=== PATIENT | male | born 1960 | race Caucasian/White ===

== ENCOUNTER → 2023-04-17 10:22 | Outpatient (BNVA) | payer OTHER, SELFPAY | PROVIDERS: Family Provider Internal Medicine; PCP Family Medicine; Visit Provider Family Medicine | DX: E11.9 Type 2 diabetes mellitus without complications (principal); E78.5 Hyperlipidemia, unspecified; I10 Essential (primary) hypertension; Z76.89 Persons encountering health services in other specified circumstances; Z00.00 Encounter for general adult medical examination without abnormal findings | CPT/HCPCS: 80053; 80061; 82043; 82607; 83036 ==

== ENCOUNTER → 2023-06-10 15:52 | Outpatient (BNVA) | payer OTHER, SELFPAY | PROVIDERS: Family Provider Internal Medicine; PCP Family Medicine; Visit Provider Family Medicine | DX: R60.9 Edema, unspecified (principal); R18.8 Other ascites; I10 Essential (primary) hypertension | CPT/HCPCS: 80053; 83880; 85025 ==

== ENCOUNTER → 2023-06-12 09:01 | Outpatient (BNVA) | payer OTHER, SELFPAY | PROVIDERS: Family Provider Internal Medicine; PCP Family Medicine; Visit Provider Family Medicine | DX: R74.01 Elevation of levels of liver transaminase levels (principal); R18.8 Other ascites; R60.9 Edema, unspecified | CPT/HCPCS: 80074; 82728; 83540; 84466; 85610; 86706 ==

== ENCOUNTER 2023-06-24 14:00 | Outpatient (CLI) | payer OTHER, SELFPAY ==
--- NOTE | 2023-06-24 14:30 | USCV_ITS ---
Marcos Deluca Age: 63 Gender: M : 1960 Exam Date: 06/24/2023 14:39 Ordering Phys: Cynthia Ca MD Technologist: CT [place] [facility] [place]: edema BP: 144 / 94 HR: 98 Rhythm: Sinus Technical Quality: Adequate MEASUREMENTS (Male / Female) Normal Values 2D ECHO LVOT Diameter 2.1 cm LV Ejection Fraction MOD 2C 55.1 % LV Ejection Fraction 2C AL 55.8 % LA Diameter 4.0 cm Aorta at Sinotubular Diameter 2.4 cm M-MODE Aortic Annulus Diameter 3.3 cm LA Ao Ratio MM 1.2 MV E Point Septal Separation 1.4 cm DOPPLER AV Peak Velocity 151.0 cm/s LVOT Peak Velocity 99.0 cm/s AV Area Cont Eq vti 2.8 cm squared AV Area Cont Eq pk 2.3 cm squared MV E' Velocity 9.0 cm/s TR Peak Velocity 114.0 cm/s TR Peak Gradient 5.2 mmHg TV Peak E Velocity 80.0 cm/s Right Atrial Pressure 3.0 mmHg Pulmonary Artery Systolic Pressu 8.2 mmHg PV Peak Velocity 129.0 cm/s FINDINGS Left Ventricle Normal left ventricular size and systolic function, EF 58 %. No regional wall motion abnormalities.Normal diastolic function. Grade I/IV diastolic dysfunction (abnormal relaxation filling pattern), normal to mildly elevated filling pressures. Right Ventricle The right ventricle is normal in size and function. Right Atrium The right atrium is normal in size. Left Atrium The left atrium is normal in size. Mitral Valve Thickened mitral valve. Mild mitral annular calcification. Aortic Valve Thickened aortic valve. Tricuspid Valve No gross abnormalities noted Pulmonic Valve No gross abnormalities noted Pericardium Possible left-sided pleural effusion Aorta Normal aortic annulus size. IVC Inferior vena cava not visualized. CONCLUSIONS Normal left ventricular size and systolic function, EF 58 %. No regional wall motion abnormalities.Normal diastolic function. Grade I/IV diastolic dysfunction (abnormal relaxation filling pattern), normal to mildly elevated filling pressures. Thickened mitral valve. Mild mitral annular calcification. Thickened aortic valve. Possible left-sided pleural effusion. No similar previous studies are available for comparison Dr Star Polk MD [facility] (Electronically Signed) Final Date: 25 June 2023 19:10 S
== END 2023-06-24 14:01 | disposition home or self-care (01) ==
LOC: RAD 14:02
PROVIDERS: Family Provider Internal Medicine; PCP Family Medicine; Visit Provider Family Medicine
DX: R60.9 Edema, unspecified (principal); I08.0 Rheumatic disorders of both mitral and aortic valves
CPT/HCPCS: 93306

== ENCOUNTER 2023-06-25 07:58 | Outpatient (CLI) | payer OTHER, SELFPAY ==
--- NOTE | 2023-06-25 08:30 | US_ITS ---
WS: [id number] ABDOMINAL ULTRASOUND REASON FOR EXAM: assess liver TECHNIQUE: Grayscale and Doppler ultrasound examination of the abdomen. FINDINGS: Pancreas: No mass or ductal dilatation. Abdominal aorta and IVC: Normal caliber and blood flow. Liver: Liver measures 20.3 cm in length. Contour of the liver is somewhat lobular. Liver is echodense . No focal lesion. Gallbladder surgically absent. Common bile duct measures 5 mm. Normal portal venous blood flow. Left kidney: Left kidney measures 12.0 cm x 5.1 cm x 5.5 cm. Left kidney cortex measures 1.2 cm. No h ydronephrosis, mass, or calculus. Right kidney: Right kidney measures 11.9 cm x 6.3 cm x 5.1 cm. Right kidney cortex measures 1.3 cm. N o hydronephrosis, mass, or calculus. Spleen: Spleen measures 17.1 cm x 8.1 cm x 17.0 cm. No focal lesion. Significant ascites. IMPRESSION: Significant hepatosplenomegaly. Significant ascites.
== END 2023-06-25 07:59 | disposition home or self-care (01) ==
LOC: RAD 07:59
PROVIDERS: Family Provider Internal Medicine; PCP Family Medicine; Visit Provider Family Medicine
DX: R18.8 Other ascites (principal); R16.2 Hepatomegaly with splenomegaly, not elsewhere classified
CPT/HCPCS: 76700

== ENCOUNTER → 2023-07-16 13:31 | Outpatient (BNVA) | payer OTHER, SELFPAY | PROVIDERS: Family Provider Internal Medicine; PCP Family Medicine; Visit Provider Family Medicine | DX: R74.01 Elevation of levels of liver transaminase levels (principal) | CPT/HCPCS: 80053; 85025 ==

== ENCOUNTER → 2023-08-14 12:56 | Outpatient (BNVA) | payer OTHER, SELFPAY | PROVIDERS: Family Provider Internal Medicine; PCP Family Medicine; Visit Provider Family Medicine | DX: R18.8 Other ascites (principal) | CPT/HCPCS: 80053; 85025; 85610 ==

== ENCOUNTER 2023-08-18 16:50 | Outpatient (CLI) | payer OTHER, SELFPAY ==
--- NOTE | 2023-08-18 16:45 | CTR_ITS ---
PROCEDURE INFORMATION: Exam: CT Abdomen And Pelvis Without Contrast Exam date and time: 08/18/2023 4:59 PM Age: 63 years old Clinical indication: Abdominal pain; Localized; Right upper quadrant (ruq); Prior surgery; Surgery date: 6+ months; Surgery type: Gb; Patient HX: Enlarged liver, burning pain in ruq since yesterday, bloating. ; Additional info: Acute ruq pain, worsening abdominal ascites, hepatomegaly, call Dr. Ca's cell w/ urgent findings - [phone] TECHNIQUE: Imaging protocol: Computed tomography of the abdomen and pelvis without contrast. Sagittal and coronal reformatted images were created and reviewed. Radiation optimization: All CT scans at this facility use at least one of these dose optimization techniques: automated exposure control; mA and/or kV adjustment per patient size (includes targeted exams where dose is matched to clinical indication); or iterative reconstruction. COMPARISON: US abdomen complete* [id number] 06/25/2023 8:12 AM RADIATION DOSE METRICS: Total DLP (mGy-cm): 854.61 FINDINGS: Limitations: Evaluation of solid organs and vasculature is limited without intravenous contrast. Lungs: There is linear scarring in the right and left lower lobes. Pleural spaces: No pleural effusion. Heart: The heart is normal in size. Coronary arteries: Mild atherosclerotic calcification in the coronary arteries. Liver: Stable nodular contour of the liver. Gallbladder and bile ducts: Stable findings consistent with a previous cholecystectomy. No biliary ductal dilatation. Pancreas: The pancreas is unremarkable. No pancreatic ductal dilatation. Spleen: Stable mild enlargement of the spleen measuring 16.4 cm in length (series 5, image 52). Adrenal glands: The right and left adrenal glands are unremarkable. Kidneys and ureters: The right and left kidneys are unremarkable. The distal right and left ureters are obscured by adjacent bowel loops and soft tissue structures. The visualized portions of the ureters are unremarkable. Stomach and bowel: The stomach is unremarkable for the degree of distension. Diffuse, mild small bowel wall thickening, likely secondary to edema from ascites. Increased fecal content in the colon. Appendix: Appendix not definitely visualized. No inflammatory changes in the pericecal region however. Intraperitoneal space: No free intraperitoneal air. Stable large volume ascites/diffuse mesenteric edema. No loculated fluid collections to suggest an abscess. Vasculature: Mild atherosclerotic changes in the visualized arteries. No evidence for aortic aneurysm. Small caliber varices in the upper abdomen. Lymph nodes: No lymphadenopathy. Urinary bladder: The bladder is unremarkable. Reproductive: Calcifications in the vas deferens. The prostate gland is mildly enlarged. Bones/joints: Degenerative changes in the spine, sacroiliac joints, and hips. Calcification of the anterior longitudinal ligament at multiple levels in the visualized thoracic spine, possibly representing diffuse idiopathic skeletal hyperostosis (DISH). Bilateral pars defects at L5-S1. Soft tissues: Moderate body wall edema. CT/CT abdomen pelvis wo con [id number] IMPRESSION: 1. Cirrhotic changes in the liver and findings suggesting portal hypertension with large volume ascites/mesenteric edema and small caliber varices in the upper abdomen. 2. Diffuse, mild small bowel wall thickening, likely secondary to edema from ascites. 3. Increased fecal content in the colon. 4. Moderate body wall edema. 5. Calcifications in the vas deferens. Findings raise suspicion for diabetes mellitus. Recommend clinical correlation. 6. Incidental/nonacute findings are listed in the report.
== END 2023-08-18 16:51 | disposition home or self-care (01) ==
LOC: RAD 16:50
PROVIDERS: Family Provider Internal Medicine; PCP Family Medicine; Visit Provider Family Medicine
DX: R18.8 Other ascites (principal); R16.0 Hepatomegaly, not elsewhere classified; R93.3 Abnormal findings on diagnostic imaging of other parts of digestive tract; R93.2 Abnormal findings on diagnostic imaging of liver and biliary tract; R10.11 Right upper quadrant pain
CPT/HCPCS: 74176

== ENCOUNTER 2023-08-21 11:27 | Day surgery (SDC) | payer OTHER, SELFPAY ==
[2023-08-21 11:38] VITALS: BP 146/89; PULSE 102; RESP 18; TEMP 36.8; O2SAT 97; BMI 30.5
--- NOTE | 2023-08-21 11:49 | US_ITS ---
WS: [id number] ULTRASOUND-GUIDED PARACENTESIS CLINICAL INFORMATION: ascities in the setting of cirrhosis COMPARISON: None. Procedure Informed consent: The risks, benefits, and alternatives of the procedure were discussed with the panfilo ent. Verbal and written consent was obtained. Timeout: A timeout was performed to confirm the correct patient, procedure, and site. Preparation: A suitable skin site was identified. The patient was prepped and draped in usual sterile fashion. Lidocaine 1% was used for local anesthesia. Catheter: 4 Swedish One-step Yueh catheter. Side: LEFT lower quadrant. Fluid Volume: 6000 ml Color: Clear yellow DISPOSITION: Discarded safely. Complications: None. Patient disposition: Discharged from the department in stable condition. IMPRESSION: Uncomplicated ultrasound-guided paracentesis. Removal of 6000 cc
== END 2023-08-21 13:00 | disposition home or self-care (01) ==
PROVIDERS: Radiology Neuroradiology; Family Provider Internal Medicine; PCP Family Medicine; Visit Provider Family Medicine
PROC: (CPT 49082; principal; 2023-08-21 12:30)
DX: R18.8 Other ascites (principal); K74.60 Unspecified cirrhosis of liver
CPT/HCPCS: 49083

== ENCOUNTER → 2023-09-04 08:42 | Day surgery (SDC) | payer OTHER, SELFPAY ==
[2023-09-04 09:03] VITALS: BP 142/88; PULSE 97; RESP 18; TEMP 36.9; O2SAT 95
--- NOTE | 2023-09-04 09:17 | US_ITS ---
WS: [id number] ULTRASOUND-GUIDED THERAPEUTIC PARACENTESIS Procedure, risks, and complications have been explained to the patient. Consent is obtained. Utilizing aseptic technique and 1% buffered lidocaine, a small dermatome was made through which a 5 F rench Yueh catheter was inserted. Approximately 8400 ml of clear peritoneal fluid was obtained witho ut difficulty. No complications encountered. IMPRESSION: Uncomplicated paracentesis yielding 8400 ml of peritoneal fluid.
[2023-09-04 10:20] LABS: Cyto Order Verification Order Verified
[2023-09-04 10:21] LABS: Apprearance, Body Fluid CLOUDY; Color, Body Fluid PALE YELLOW; Fluid Laterality PERITONEAL FLUID; PATH Referral YES
[2023-09-04] MEDS: albumin 50 G/200 ML BAG 60 G IV (10:31)
[2023-09-04 10:33] LABS: Body Fluid Polynuclear #Cells 0.027; Body Fluid WBC 912 /uL; Monocytes # Body Fluid 0.885; RBC, Body Fluid 0 10^3/uL
[2023-09-04 10:39] LABS: Albumin Body Fluid 1.6 g/dL; Total Protein Body Fluid 2.7 g/dL
== END ==
PROVIDERS: Nurse Practitioner Family; Radiology Diagnostic Radiology; Family Provider Internal Medicine; PCP Family Medicine; Visit Provider Pathology Anatomic Pathology & Clinical Pathology
PROC: (CPT 49082; principal; 2023-09-04 10:00)
DX: R18.8 Other ascites (principal)
CPT/HCPCS: 49083; 80503; 82042; 84157; 87070; 87075; 87205; 88112; 89050; 96365; P9046

== ENCOUNTER 2023-09-16 10:46 | Day surgery (SDC) | payer OTHER, SELFPAY ==
--- NOTE | 2023-09-16 10:54 | US_ITS ---
WS: [id number] ULTRASOUND-GUIDED THERAPEUTIC AND DIAGNOSTIC PARACENTESIS Procedure, risks, and complications have been explained to the patient. Consent is obtained. Utilizing aseptic technique and 1% buffered lidocaine, a small dermatome was made through which a 5 F rench Yueh catheter was inserted. Approximately 5800 ml of clear peritoneal fluid was obtained witho ut difficulty. No complications encountered. IMPRESSION: Uncomplicated paracentesis yielding 5800 ml of peritoneal fluid. Specimen collected for analysis as requested.
[2023-09-16 11:02] VITALS: BP 125/71; PULSE 88; RESP 20; TEMP 36.2; O2SAT 97; BMI 28.7
[2023-09-16 12:15] LABS: Body Fluid Polynuclear #Cells 0.136; Body Fluid WBC 1518 /uL; Monocytes # Body Fluid 1.382
[2023-09-16 12:31] LABS: PATH Referral YES
[2023-09-16 12:37] LABS: Apprearance, Body Fluid CLOUDY; Color, Body Fluid PALE YELLOW; Cyto Order Verification Order Verified; Fluid Laterality Left Lower
[2023-09-16 12:44] LABS: Albumin Body Fluid 1.5 g/dL; Fluid Alkaline Phos. 76 IU/L; LDH Body Fluid 81 U/L; Total Protein Body Fluid 2.8 g/dL
[2023-09-16 12:45] LABS: Cholesterol Body Fluid 49 mg/dL (0-200); Triglycerides Body Fluid 16 mg/dL (0-150); Uric Acid Body Fluid 7 mg/dL
[2023-09-21 20:54] LABS: Amylase, Peritoneal Fluid 11 U/L; Amylase, Pleural Fluid 11 U/L
== END 2023-09-16 12:18 | disposition home or self-care (01) ==
PROVIDERS: Radiology Diagnostic Radiology; Family Provider Internal Medicine; PCP Family Medicine; Visit Provider Nurse Practitioner Family
PROC: (CPT 49082; principal; 2023-09-16 12:00)
DX: R18.8 Other ascites (principal)
CPT/HCPCS: 49083; 80503; 82042; 82150; 82465; 82945; 83615; 83986; 84075; 84157; 84315; 84478; 84560; 87015; 87070; 87075; 87116; 87205; 87206; 87801; 88112; 89050

== ENCOUNTER 2023-09-30 10:32 | Day surgery (SDC) | payer OTHER, SELFPAY ==
--- NOTE | 2023-09-30 11:24 | US_ITS ---
WS: [id number] ULTRASOUND-GUIDED THERAPEUTIC AND DIAGNOSTIC PARACENTESIS Procedure, risks, and complications have been explained to the patient. Consent is obtained. Utilizing aseptic technique and 1% buffered lidocaine, a small dermatome was made through which a 5 F rench Yueh catheter was inserted. Approximately 7900 ml of clear yellow peritoneal fluid was obtained without difficulty. No complications encountered. Fluid collected for analysis as requested. US/US paracentesis abd w [id number] IMPRESSION: Uncomplicated paracentesis yielding 7900 ml of peritoneal fluid.
[2023-09-30 11:46] VITALS: BP 144/77; PULSE 87; RESP 16; TEMP 36.5; O2SAT 97; BMI 29.4
[2023-09-30 12:21] LABS: Mononuclear %, Pleural Fluid 95 %; Polynuclear Cells, Pleural % 5 %
[2023-09-30 12:24] LABS: Cyto Order Verification Order Verified
[2023-09-30 12:26] LABS: Appearance, Pleural Fluid CLOUDY (CLEAR); Color, Pleural Fluid Yellow (Pale Yellow); PATH Referal YES
[2023-09-30] MEDS: albumin 50 G/200 ML BAG 60 G IV (12:37)
[2023-09-30 12:42] LABS: Albumin Body Fluid 1.5 g/dL; Total Protein Body Fluid 2.7 g/dL
== END 2023-09-30 13:08 | disposition home or self-care (01) ==
LOC: GILAB 10:33
PROVIDERS: Radiology Diagnostic Radiology; Family Provider Internal Medicine; PCP Family Medicine; Visit Provider Nurse Practitioner Family
PROC: (CPT 49082; principal; 2023-09-30 12:00)
DX: R18.8 Other ascites (principal)
CPT/HCPCS: 49083; 80503; 82042; 84157; 87075; 88112; 89050; 96365; P9046

== ENCOUNTER 2023-10-14 10:32 | Day surgery (SDC) | payer OTHER, SELFPAY ==
--- NOTE | 2023-10-14 10:56 | US_ITS ---
WS: [id number] ULTRASOUND-GUIDED THERAPEUTIC AND DIAGNOSTIC PARACENTESIS Procedure, risks, and complications have been explained to the patient. Consent is obtained. Utilizing aseptic technique and 1% buffered lidocaine, a small dermatome was made through which a 5 F rench Yueh catheter was inserted. Approximately 5500 ml of clear peritoneal fluid was obtained witho ut difficulty. No complications encountered. Specimen collected for analysis as requested. US/US paracentesis abd w [id number] IMPRESSION: Uncomplicated paracentesis yielding 5500 ml of peritoneal fluid.
[2023-10-14 10:58] VITALS: BP 129/68; PULSE 93; RESP 18; TEMP 36.2; O2SAT 96; BMI 29.4
[2023-10-14 12:02] LABS: Mononuclear #, Pertinoneal Fl 0.855 10^3/uL; Polynuclear # Cells, Perit 0.028 10^3/uL; RBC Pertioneal Fluid 1 10^3/uL; WBC Peritoneal Fluid 883 /uL
[2023-10-14 12:06] LABS: Cyto Order Verification Order Verified
[2023-10-14 12:14] LABS: Appearance, Peritoneal Fluid Hazy (Clear); Color, Peritoneal Fluid Yellow (Pale Yellow); Pathology Referral Yes
[2023-10-14 12:42] LABS: Albumin Peritoneal Fluid 1.6 g/dL
== END 2023-10-14 12:15 | disposition home or self-care (01) ==
LOC: GILAB 10:33
PROVIDERS: Radiology Diagnostic Radiology; Family Provider Internal Medicine; PCP Family Medicine; Visit Provider Nurse Practitioner Family
PROC: (CPT 49082; principal; 2023-10-14 12:00)
DX: R18.8 Other ascites (principal)
CPT/HCPCS: 49083; 80503; 82042; 84157; 87075; 88112; 89050

== ENCOUNTER 2023-10-28 10:42 | Day surgery (SDC) | payer OTHER, SELFPAY ==
--- NOTE | 2023-10-28 11:05 | US_ITS ---
WS: [id number] ULTRASOUND-GUIDED THERAPEUTIC AND DIAGNOSTIC PARACENTESIS Procedure, risks, and complications have been explained to the patient. Consent is obtained. Utilizing aseptic technique and 1% buffered lidocaine, a small dermatome was made through which a 5 F rench Yueh catheter was inserted. Approximately 4100 ml of clear peritoneal fluid was obtained witho ut difficulty. No complications encountered. Specimen collected for analysis. US/US paracentesis abd w [id number] IMPRESSION: Uncomplicated paracentesis yielding 4100 ml of peritoneal fluid.
[2023-10-28 11:11] VITALS: BP 131/77; PULSE 83; RESP 20; TEMP 36.1; O2SAT 96; BMI 29.5
[2023-10-28 12:54] LABS: Appearance, Pleural Fluid TURBID (CLEAR); Color, Pleural Fluid Pale Yellow (Pale Yellow); Cyto Order Verification Order Verified
[2023-10-28 12:57] LABS: Mononuclear %, Pleural Fluid 96 %; Polynuclear Cells, Pleural % 4 %
[2023-10-28 13:06] LABS: PATH Referal YES
[2023-10-28 13:17] LABS: Albumin Body Fluid 1.6 g/dL; Total Protein Body Fluid 3.1 g/dL
== END 2023-10-28 12:31 | disposition home or self-care (01) ==
PROVIDERS: Radiology Diagnostic Radiology; Family Provider Internal Medicine; PCP Family Medicine; Visit Provider Nurse Practitioner Family
PROC: (CPT 49082; principal; 2023-10-28 12:00)
DX: R18.8 Other ascites (principal)
CPT/HCPCS: 49083; 80503; 82042; 84157; 87070; 87075; 87205; 88112; 89050

== ENCOUNTER 2023-11-11 10:47 | Day surgery (SDC) | payer OTHER, SELFPAY ==
--- NOTE | 2023-11-11 11:04 | US_ITS ---
WS: [id number] ULTRASOUND-GUIDED THERAPEUTIC AND DIAGNOSTIC PARACENTESIS Procedure, risks, and complications have been explained to the patient. Consent is obtained. Utilizing aseptic technique and 1% buffered lidocaine, a small dermatome was made through which a 5 F rench Yueh catheter was inserted. Approximately 3800 ml of clear peritoneal fluid was obtained witho ut difficulty. No complications encountered. Peritoneal fluid collected for analysis as requested. US/US paracentesis abd w [id number] IMPRESSION: Uncomplicated paracentesis yielding 3800 ml of peritoneal fluid.
[2023-11-11 11:05] VITALS: BP 154/91; PULSE 87; RESP 18; TEMP 36.4; O2SAT 98
[2023-11-11 13:27] LABS: Cyto Order Verification Order Verified
[2023-11-11 13:41] LABS: Albumin Peritoneal Fluid 1.6 g/dL; Appearance, Pleural Fluid CLOUDY (CLEAR); Color, Pleural Fluid Pale Yellow (Pale Yellow); PATH Referal YES; Total Protein Peritoneal Fluid 3.1 g/dL
[2023-11-11 13:42] LABS: Mononuclear %, Pleural Fluid 94 %; Polynuclear Cells, Pleural % 6 %
== END 2023-11-11 12:39 | disposition home or self-care (01) ==
LOC: GILAB 10:48
PROVIDERS: Radiology Diagnostic Radiology; Family Provider Internal Medicine; PCP Family Medicine; Visit Provider Nurse Practitioner Family
PROC: (CPT 49082; principal; 2023-11-11 12:00)
DX: R18.8 Other ascites (principal)
CPT/HCPCS: 49083; 80503; 82042; 84157; 87070; 87075; 87205; 88112; 88305; 89050

== ENCOUNTER 2023-11-25 10:31 | Day surgery (SDC) | payer OTHER, SELFPAY ==
--- NOTE | 2023-11-25 10:46 | US_ITS ---
WS: [email or web address] INDICATION: Ascites paracentesis TECHNIQUE: Ultrasound abdomen limited FINDINGS: Only a small amount of ascites visualized. Insufficient fluid for paracentesis. US/US abdomen lmt fluid [id number] IMPRESSION: See above
[2023-11-25 10:50] VITALS: BP 130/75; PULSE 86; RESP 16; TEMP 36.2; O2SAT 96
== END 2023-11-25 11:08 | disposition home or self-care (01) ==
PROVIDERS: Family Provider Internal Medicine; PCP Family Medicine
DX: R18.8 Other ascites (principal)
CPT/HCPCS: 76705

== ENCOUNTER 2023-12-02 16:33 | Emergency (ER) | payer OTHER, SELFPAY ==
[2023-12-02 16:49] VITALS: BP 123/73; PULSE 82; RESP 16; TEMP 36.8; O2SAT 97
[2023-12-02 16:51] LABS: Glucose Point of Care 586 mg/dL (70-110)
[2023-12-02 17:30] LABS: ABG PCO2 40.1 mmHg (35-45); ABG PH Result 7.44 (7.35-7.45); Alveolar-Arterial Oxygen Gradi 3.4 mmHg (5-10); Arterial Blood Gas Hematocrit 35.4 % (42-52); Base Excess ABG 2.7 mmol/L (-2.0-2.0); Blood Gas Allen Test Pos; Blood Gas Operator Identificat WALCI; Blood Gas Sample Site Radial, left; Blood Gas Sample Type Arterial; Carboxyhemoglobin 1.3 %THgb (0.4-20.1); HCO3 ABG 27.1 mmol/L (22-26); HGB O2 Sat 93.7 % (95-100); Ionized Calcium Level - ABG 1.2 mmol/L (1.1-1.4); Methemoglobin 0.5 % (0.4-1.5); Oxygen Device ROOM AIR; Oxygen Saturation ABG 95.5; PO2 ABG 73.2 mmHg (80.0-100.0); PO2 FiO2 Ratio Arterial Blood 348; Potassium Level - ABG 4.7 mmol/L (3.5-5.0); Total Hemoglobin 11.5 g/dL (14-18)
[2023-12-02 18:19] LABS: Eosinophils # 0.2 10^3/uL (0.0-0.8); Eosinophils % 4.2 %; Hematocrit 33.5 % (37-53); Lymphocytes # 0.8 10^3/uL (0.8-4.8); Lymphocytes % 18.6 %; Mean Corpuscular HGB Conc 34.9 g/dL (30-55); Mean Corpuscular Volume 88.9 fl (82-101); Monocytes # 0.5 10^3/uL (0.2-0.9); Monocytes % 12.2 %; Neutrophils # 2.56 10^3/uL (1.8-7.7); Neutrophils % 62.5 %; Nucleated Red Blood Cells % 0 %; Platelet Count 119 10^3/cmm (157-399); Red Blood Count 3.77 10^6/uL (3.85-5.65); Red Cell Distribution Width 13.8 % (12.1-15.1); White Blood Count 4.09 10^3/uL (3.29-11.43)
[2023-12-02 18:28] LABS: Ketone (Acetest) Serum Negative (Negative)
[2023-12-02 18:57] LABS: Lactic Sepsis W/Reflex 1.9 mmol/L (0.5-2.2)
[2023-12-02] MEDS: sodium chloride 0.9% 1,000 ML 999 ML IV (18:58)
[2023-12-02] MEDS: insulin regular-human 100 units/1 mL 10 UNIT IVP ×2 (18:58→20:32)
[2023-12-02 19:00] VITALS: BP 125/71; PULSE 80; RESP 16; O2SAT 95
--- NOTE | 2023-12-02 19:00 | ED_ITS ---
HPI - Recheck/Abnormal Lab/Rx 2 General: Chief Complaint: Recheck/Abnormal Lab/Rx Stated Complaint: high blood sugar Time Seen by Provider: 12/02/23 18:26 History of Present Illness: Patient presents to the ER after going to his GI doctor in [place] and before they can get home he got a call that the doctor said his blood sugar was over 700. Patient is a type II diabetic only on metformin, he stopped Ozempic in around June due to liver cirrhosis, patient has been taking his medicine and has not missed any doses. Today in triage his blood sugar was 586. Patient denies any other symptoms at this time. Review of Systems 2 General: Reports: 10 or more systems reviewed and unremarkable except in HPI and below PFSH ED 2 PFSH: Medical History Cirrhosis History of vitreous hemorrhage of right eye Diabetes mellitus Hyperlipidemia Hypertension Surgical History History of cholecystectomy Family History Brother Colon cancer Mother Diabetes Stroke Father Diabetes Social History Smoking and tobacco/nicotine status: never used tobacco/nicotine Alcohol intake: current Alcohol intake frequency: holidays/special occasions only Substance/Drug Use: never Household members: spouse Marital status: Current occupational status: retired 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 Pets and animals: Yes Pets & animals: cat(s) Special ricki needs: No Agree to transfusion: Yes Physical Exam 2 Const: COMMON NORMALS: no acute distress, average body habitus, patient oriented x3, no limitations, healthy appearing, alert and well nourished HENMT: COMMON NORMALS: normocephalic, atraumatic, hearing grossly normal bilaterally, external ears normal, Normal external nose present, Normal nasal mucous membranes and turbinates present, moist oral mucous membranes and oropharynx normal HEAD & SCALP: normocephalic and atraumatic NOSE: Normal external nose present and Normal nasal mucous membranes and turbinates present EXTERNAL EAR: Yes external ears normal Neck/C-Spine: COMMON NORMALS: no JVD Chest: COMMONS NORMALS: normal inspection of the chest and normal palpation of entire chest wall Resp: COMMON NORMALS: normal respiratory effort, No retractions, No use of accessory muscles and clear to auscultation bilaterally AUSCULTATION: clear to auscultation bilaterally Cardio: COMMON NORMALS: no JVD, regular rate, regular rhythm, S1 normal heart sound present, S2 normal heart sound present, No gallops present (Cardio), No clicks present (Cardio), No murmurs present (Cardio) and No rub (Cardio) R ATE: regular rate RHYTHM: regular rhythm HEART SOUNDS: S1 normal heart sound present and S2 normal heart sound present GI: COMMON NORMALS: Normal to inspection, nondistended, normoactive bowel sounds present, Soft to palpation, non-tender, No hepatosplenomegaly present and no masses PALPATION: Yes Soft to palpation and Yes No hepatosplenomegaly present Neuro: COMMON NORMALS: patient oriented x3 SENSORIUM/ORIENTATION: Yes alert Course 2 Vital Signs: Vital signs: Vital Signs Temperature 98.3 F 12/02/23 16:49 Pulse Rate 87 12/02/23 20:00 Respiratory Rate 16 12/02/23 20:00 Blood Pressure 125/70 12/02/23 20:00 Pulse Oximetry 96 12/02/23 20:00 MDM - Recheck/Abnormal Lab/Rx Medical Decision Making Patient had lab work that revealed a elevated blood sugar 612. Patient was given 1 L normal saline and 10 units of IV insulin, his blood sugar went down to about 580, patient was given another 10 units of IV insulin and blood sugar improved elevated 344, patient was not acidotic ketones are negative. Liver enzymes are slightly elevated this is consistent with the patient's history. Patient be discharged home and instructed to follow-up with his family proximal physician as he may need a medication change. Differential Diagnosis Unlikely encounter for medication refill, encounter for wound recheck, encounter for recheck of burn, encounter for removal of sutures or warfarin-induced coagulopathy Medical Records I reviewed the patient's medical records. Lab Data I reviewed the patient's lab results. 12/02/23 18:06 12/02/23 18:06 Laboratory Results WBC 4.09 10^3/uL (3.29-11.43) 12/02/23 18:06 RBC 3.77 10^6/uL (3.85-5.65) L 12/02/23 18:06 Hgb 11.70 g/dL (11.27-16.99) 12/02/23 18:06 Hct 33.5 % (37-53) L 12/02/23 18:06 MCV 88.9 fl (82-101) 12/02/23 18:06 MCH 31.0 pg (27-33) 12/02/23 18:06 MCHC 34.9 g/dL (30-55) 12/02/23 18:06 RDW 13.8 % (12.1-15.1) 12/02/23 18:06 Plt Count 119 10^3/cmm (157-399) L 12/02/23 18:06 MPV 10.0 fL (7.4-10.4) 12/02/23 18:06 Neut % (Auto) 62.5 % 12/02/23 18:06 Lymph % (Auto) 18.6 % 12/02/23 18:06 [place] % (Auto) 12.2 % 12/02/23 18:06 Eos % (Auto) 4.2 % 12/02/23 18:06 Baso % (Auto) 1.0 % 12/02/23 18:06 Neut # (Auto) 2.56 10^3/uL (1.8-7.7) 12/02/23 18:06 Lymph # (Auto) 0.8 10^3/uL (0.8-4.8) 12/02/23 18:06 [place] # (Auto) 0.5 10^3/uL (0.2-0.9) 12/02/23 18:06 Eos # (Auto) 0.2 10^3/uL (0.0-0.8) 12/02/23 18:06 Baso # (Auto) 0.0 10^3/uL (0.0-0.1) 12/02/23 18:06 Nucleated RBC % (auto) 0 % 12/02/23 18:06 Nucleated RBCs # 0.0 /100WBC 12/02/23 18:06 Specimen Type Arterial 12/02/23 17:19 Sample Site Radial, left 12/02/23 17:19 ABG pH 7.44 (7.35-7.45) 12/02/23 17:19 ABG pCO2 40.1 mmHg (35-45) 12/02/23 17:19 ABG pO2 73.2 mmHg (80.0-100.0) L 12/02/23 17:19 ABG PO2/FiO2 Ratio 348 12/02/23 17:19 ABG HCO3 27.1 mmol/L (22-26) H 12/02/23 17:19 ABG O2 Saturation 95.5 12/02/23 17:19 ABG Base Excess 2.7 mmol/L (-2.0-2.0) H 12/02/23 17:19 King Test Pos 12/02/23 17:19 A-a O2 Gradient 3.4 mmHg (5-10) L 12/02/23 17:19 Hematocrit 35.4 % (42-52) L 12/02/23 17:19 Hgb O2 Saturation 93.7 % (95-100) L 12/02/23 17:19 Carboxyhemoglobin 1.3 %THgb (0.4-20.1) 12/02/23 17:19 Methemoglobin 0.5 % (0.4-1.5) 12/02/23 17:19 Total Hemoglobin 11.5 g/dL (14-18) L 12/02/23 17:19 Sodium 124.0 mmol/L (131-143) L 12/02/23 17:19 Potassium 4.7 mmol/L (3.5-5.0) 12/02/23 17:19 Glucose 485.0 mg/dL (70-115) H 12/02/23 17:19 Ionized Calcium 1.2 mmol/L (1.1-1.4) 12/02/23 17:19 O2 Delivery Device Room air 12/02/23 17:19 FiO2 21.0 % 12/02/23 17:19 It Infrastructure Manager ID [place] 12/02/23 17:19 Sodium 124 mmol/L (136-145) L 12/02/23 18:06 Potassium 4.8 mmol/L (3.5-5.1) 12/02/23 18:06 Chloride 87 mmol/L (98-107) L 12/02/23 18:06 Carbon Dioxide 24 mmol/L (22-29) 12/02/23 18:06 Anion Gap 17.8 (5-19) 12/02/23 18:06 BUN 27 mg/dL (8-23) H 12/02/23 18:06 Creatinine 1.4 mg/dL (0.7-1.2) H 12/02/23 18:06 GFR Calculation 51.2 mL/min (90-130) L 12/02/23 18:06 Glucose 612 mg/dL (65-115) H* 12/02/23 18:06 POC Glucose 344 mg/dL (70-110) H 12/02/23 21:26 Calculated Osmolality 292 mOsm/kg (285-295) 12/02/23 18:06 Lactic Acid 1.9 mmol/L (0.5-2.2) 12/02/23 18:06 Calcium 9.3 mg/dL (8.5-10.5) 12/02/23 18:06 Total Bilirubin 1.0 mg/dL (0.15-1.2) 12/02/23 18:06 AST 72 U/L (0-40) H 12/02/23 18:06 ALT 76 U/L (0-41) H 12/02/23 18:06 Alkaline Phosphatase 284 U/L (40-130) H 12/02/23 18:06 C-Reactive Protein 9.3 mg/L (0.0-4.9) H 12/02/23 18:06 Total Protein 7.8 g/dL (6.6-8.7) 12/02/23 18:06 Albumin 3.4 g/dL (3.5-5.2) L 12/02/23 18:06 Globulin 4.4 g/dL (1.3-4.6) 12/02/23 18:06 Urine Color Yellow (Yellow) 12/02/23 18:22 Urine Appearance Clear (CLEAR) 12/02/23 18:22 Urine pH 5 (5-7) 12/02/23 18:22 Ur Specific [place] 1.005 (1.005-1.030) 12/02/23 18:22 Urine Protein Trace (Negative) 12/02/23 18:22 Urine Glucose (UA) 4+ (Normal) H 12/02/23 18:22 Urine Ketones Negative (Negative) 12/02/23 18:22 Urine Blood Neg (Negative) 12/02/23 18:22 Urine Nitrate Negative (Negative) 12/02/23 18:22 Urine Bilirubin Neg (Negative) 12/02/23 18:22 Urine Urobilinogen Norm mg/dL (Negative) 12/02/23 18:22 Ur Leukocyte Esterase Negative (Negative) 12/02/23 18:22 Urine RBC 0-4 /hpf (0-2) H 12/02/23 18:22 Urine WBC 0-4 /hpf (0-5) H 12/02/23 18:22 Ur Squamous Epith Cells 0-4 /hpf (0-5) H 12/02/23 18:22 Amorphous Sediment Not Reportable 12/02/23 18:22 Urine Bacteria Trace /hpf (NONE) 12/02/23 18:22 Serum Ketones Negative (Negative) 12/02/23 18:06 All radiology interpretation(s) finalized by discharge Discharge Plan Discharge Patient Disposition: Home Clinical Impression: Hyperglycemia due to diabetes mellitus Condition: Stable Prescriptions: No Action metformin 500 mg tablet 1,000 mg PO BID Qty: 360 0RF Rx Instructions: Take 2 tablets by mouth twice daily furosemide 40 mg tablet 40 mg PO DAILY Qty: 90 0RF Rx Instructions: Take 1 tablet by mouth once daily spironolactone 100 mg tablet 100 mg PO DAILY Qty: 90 0RF Rx Instructions: Take 1 tablet by mouth once daily lisinopril-hydrochlorothiazide 20-12.5 mg tablet 1 tab PO DAILY Rx Instructions: Take 1 tablet by mouth once daily Discharge Orders: Discharge ED (Routine); Ordered 12/02/23 Ordered By: Yohannes Arenas Referrals: Cynthia Ca MD [Primary Care Provider] - 1 week Patient Instructions: Hyperglycemia Activity Restrictions/Additional Instructions: Your blood sugar was extremely elevated in the ER today this makes you urinate more which makes you dehydrated which makes your kidneys creatinine level increased. You are slightly increased to 1.4, you are given a total of 20 units of insulin and 1 L normal saline this is helped your sugar dramatically. No evidence of infection was found, please follow-up with your primary care doctor within the next 7 days as you may benefit from medication change. Coding Level of Care Code ED Drug Worker for Rochelle Manjarrez
[2023-12-02 19:12] LABS: Alanine Aminotransferase 76 U/L (0-41); Albumin Level 3.4 g/dL (3.5-5.2); Alkaline Phosphatase 284 U/L (40-130); Anion Gap 17.8 (5-19); Aspartate Amino Transferase 72 U/L (0-40); Blood Urea Nitrogen 27 mg/dL (8-23); C Reactive Protein 9.3 mg/L (0.0-4.9); Calcium 9.3 mg/dL (8.5-10.5); Carbon Dioxide 24 mmol/L (22-29); Chloride 87 mmol/L (98-107); Creatinine Clr Calc Pharmacy 61.7323; Globulin 4.4 g/dL (1.3-4.6); Glomerular Filtration Rate 51.2 mL/min (90-130); Osmolality Calculated 292 mOsm/kg (285-295); Potassium 4.8 mmol/L (3.5-5.1); Sodium 124 mmol/L (136-145); Total Protein 7.8 g/dL (6.6-8.7)
[2023-12-02 19:18] LABS: Bacteria Urine TRACE /hpf; Bilirubin Urine Neg (Negative); Blood Urine Neg (Negative); Glucose Urine UA 4+ (Normal); Ketones Urine Negative (Negative); Leukocyte Esterase Urine Negative (Negative); Nitrate Urine Negative (Negative); Protein Urine Trace (Negative); RBC Urine 0-4 /hpf (0-2); Specific Gravity, Urine 1.005 (1.005-1.030); Squamous Epithelial Cell Urine 0-4 /hpf (0-5); Urine Appearance Clear (CLEAR); Urine Color Yellow (Yellow); Urobilinogen Urine Norm (Negative); WBC Urine 0-4 /hpf (0-5); pH Urine 5 (5-7)
[2023-12-02 19:19] LABS: Add Urine Culture? No
[2023-12-02 19:21] LABS: Glucose 612 mg/dL (65-115)
[2023-12-02 19:30] VITALS: BP 134/73; PULSE 82; RESP 16; O2SAT 95
[2023-12-02 20:00] VITALS: BP 125/70; PULSE 87; RESP 16; O2SAT 96
[2023-12-02 20:24] LABS: Glucose Point of Care 429 mg/dL (70-110)
[2023-12-02 21:29] LABS: Glucose Point of Care 344 mg/dL (70-110)
== END 2023-12-02 22:06 | disposition home or self-care (01) ==
PROVIDERS: Emergency Medicine; Emergency Provider Emergency Medicine; PCP Family Medicine
DX: E11.65 Type 2 diabetes mellitus with hyperglycemia (principal); Z79.84 Long term (current) use of oral hypoglycemic drugs; E78.5 Hyperlipidemia, unspecified; I10 Essential (primary) hypertension
CPT/HCPCS: 36416; 36600; 80051; 80053; 81001; 82009; 82330; 82805; 82962; 83605; 85025; 86140; 96361; 96374; 96376; 99284; J1815; J7030

== ENCOUNTER 2023-12-09 10:47 | Day surgery (SDC) | payer OTHER, SELFPAY ==
--- NOTE | 2023-12-09 11:00 | US_ITS ---
WS: [email or web address] INDICATION: Ascites TECHNIQUE: Ultrasound abdomen limited FINDINGS: Ultrasound abdomen four-quadrant. Only minimal ascites. Insufficient fluid for paracentesis . US/US abdomen lmt fluid [id number] IMPRESSION: See above
[2023-12-09 11:05] VITALS: BP 138/78; PULSE 91; RESP 18; TEMP 36.3; O2SAT 98; BMI 29.1
== END 2023-12-09 11:48 | disposition home or self-care (01) ==
PROVIDERS: Radiology Neuroradiology; PCP Family Medicine; Visit Provider Nurse Practitioner Family
DX: R18.8 Other ascites (principal)
CPT/HCPCS: 49083; 76705

== ENCOUNTER → 2023-12-15 08:40 | Outpatient (BNVA) | payer OTHER, SELFPAY | PROVIDERS: PCP Family Medicine; Visit Provider Family Medicine | DX: E11.9 Type 2 diabetes mellitus without complications (principal) | CPT/HCPCS: 80053; 80061; 82607; 83036 ==

== ENCOUNTER 2023-12-23 10:54 | Day surgery (SDC) | payer OTHER, SELFPAY ==
--- NOTE | 2023-12-23 11:01 | US_ITS ---
WS: [email or web address] ULTRASOUND-GUIDED PARACENTESIS CLINICAL INFORMATION: cirrhosis of the liver with ascites COMPARISON: None. Procedure Informed consent: The risks, benefits, and alternatives of the procedure were discussed with the panfilo ent. Verbal and written consent was obtained. Timeout: A timeout was performed to confirm the correct patient, procedure, and site. Preparation: A suitable skin site was identified. The patient was prepped and draped in usual sterile fashion. Lidocaine 1% was used for local anesthesia. Catheter: 4 Malawian One-step Yueh catheter. Side: RIGHT lower quadrant. Fluid Volume: 4400 ml Color: Clear yellow Complications: None. Patient disposition: Discharged from the department in stable condition. US/US paracentesis abd w [id number] IMPRESSION: Uncomplicated ultrasound-guided paracentesis. Removal of 4400 cc
[2023-12-23 11:19] VITALS: BP 141/87; PULSE 78; RESP 18; TEMP 36.4; O2SAT 95
[2023-12-23 12:38] LABS: Cyto Order Verification No Order
[2023-12-23 12:44] LABS: Mononuclear %, Pleural Fluid 95 %; Polynuclear Cells, Pleural % 5 %
[2023-12-23 12:45] LABS: Appearance, Pleural Fluid CLOUDY (CLEAR); Color, Pleural Fluid Pale Yellow (Pale Yellow)
[2023-12-23 12:46] LABS: PATH Referal YES
[2023-12-23 13:09] LABS: Albumin Peritoneal Fluid 1.4 g/dL
[2023-12-23 13:10] LABS: Total Protein Peritoneal Fluid 2.8 g/dL
== END 2023-12-23 12:34 | disposition home or self-care (01) ==
LOC: GILAB 10:55
PROVIDERS: Radiology Neuroradiology; PCP Family Medicine; Visit Provider Nurse Practitioner Family
PROC: (CPT 49082; principal; 2023-12-23 12:00)
DX: K74.60 Unspecified cirrhosis of liver (principal); R18.8 Other ascites
CPT/HCPCS: 49083; 80503; 82042; 84157; 87070; 87075; 87205; 89050

== ENCOUNTER → 2024-01-20 10:46 | Day surgery (SDC) | payer OTHER, SELFPAY ==
--- NOTE | 2024-01-20 10:59 | US_ITS ---
WS: [email or web address] ULTRASOUND-GUIDED PARACENTESIS CLINICAL INFORMATION: cirrhosis of liver with ascites COMPARISON: None. Procedure Informed consent: The risks, benefits, and alternatives of the procedure were discussed with the panfilo ent. Verbal and written consent was obtained. Timeout: A timeout was performed to confirm the correct patient, procedure, and site. Preparation: A suitable skin site was identified. The patient was prepped and draped in usual sterile fashion. Lidocaine 1% was used for local anesthesia. Catheter: 4 Vietnamese One-step [place] catheter. Side: RIGHT lower quadrant. Fluid Volume: 5600 ml Color: Clear yellow DISPOSITION: Discarded safely. Complications: None. Patient disposition: Discharged from the department in stable condition. US/US paracentesis abd w [id number] IMPRESSION: Uncomplicated ultrasound-guided paracentesis. Removal of 5600 cc
[2024-01-20 11:01] VITALS: BP 161/90; PULSE 79; RESP 17; TEMP 36.2; O2SAT 96
[2024-01-20] MEDS: albumin 50 G/200 ML BAG 60 G IV (12:38)
[2024-01-20 12:41] LABS: Body Fluid Polynuclear #Cells 0.022; Body Fluid WBC 375 /uL; Monocytes # Body Fluid 0.353; RBC, Body Fluid 0 10^3/uL
[2024-01-20 12:45] LABS: Apprearance, Body Fluid CLOUDY; Color, Body Fluid YELLOW; Fluid Laterality PERITONEAL FLUID; PATH Referral YES
[2024-01-20 12:46] LABS: Cyto Order Verification Order Verified
[2024-01-20 12:55] LABS: Total Protein Body Fluid 2.9 g/dL
[2024-01-20 12:56] LABS: Albumin Body Fluid 1.6 g/dL
== END ==
PROVIDERS: Radiology Neuroradiology; PCP Family Medicine; Visit Provider Nurse Practitioner Family
PROC: (CPT 49082; principal; 2024-01-20 12:00)
DX: K74.60 Unspecified cirrhosis of liver (principal); R18.8 Other ascites
CPT/HCPCS: 49083; 80503; 82042; 84157; 87070; 87075; 87205; 88112; 88305; 89050; 96365; P9046

== ENCOUNTER 2024-02-19 11:16 | Day surgery (SDC) | payer OTHER, SELFPAY ==
--- NOTE | 2024-02-19 11:30 | US_ITS ---
WS: [email or web address] ULTRASOUND-GUIDED PARACENTESIS CLINICAL INFORMATION: cirrhosis of liver with ascites COMPARISON: None. Procedure Informed consent: The risks, benefits, and alternatives of the procedure were discussed with the panfilo ent. Verbal and written consent was obtained. Timeout: A timeout was performed to confirm the correct patient, procedure, and site. Preparation: A suitable skin site was identified. The patient was prepped and draped in usual sterile fashion. Lidocaine 1% was used for local anesthesia. Catheter: 4 Romanian One-step Yueh catheter. Side: RIGHT lower quadrant. Fluid Volume: 3750 ml Color: Clear yellow DISPOSITION: Discarded safely. Complications: None. Patient disposition: Discharged from the department in stable condition. US/US paracentesis abd w [id number] IMPRESSION: Uncomplicated ultrasound-guided paracentesis. Removal of 3750 cc
[2024-02-19 11:31] VITALS: BP 154/89; PULSE 95; RESP 18; TEMP 36.4; O2SAT 95
[2024-02-19 13:03] LABS: Albumin Peritoneal Fluid 1.5 g/dL; Cyto Order Verification Order Verified
[2024-02-19 13:04] LABS: Total Protein Peritoneal Fluid 2.9 g/dL
== END 2024-02-19 12:59 | disposition home or self-care (01) ==
PROVIDERS: Radiology Neuroradiology; PCP Family Medicine; Visit Provider Nurse Practitioner Family
PROC: (CPT 49082; principal; 2024-02-19 12:00)
DX: K74.60 Unspecified cirrhosis of liver (principal); R18.8 Other ascites
CPT/HCPCS: 49083; 82042; 84157; 87070; 87075; 87205; 88112

== ENCOUNTER 2024-03-16 11:20 | Day surgery (SDC) | payer OTHER, SELFPAY ==
--- NOTE | 2024-03-16 11:37 | US_ITS ---
WS: [email or web address] ULTRASOUND-GUIDED PARACENTESIS CLINICAL INFORMATION: Ascites COMPARISON: None. Procedure Informed consent: The risks, benefits, and alternatives of the procedure were discussed with the panfilo ent. Verbal and written consent was obtained. Timeout: A timeout was performed to confirm the correct patient, procedure, and site. Preparation: A suitable skin site was identified. The patient was prepped and draped in usual sterile fashion. Lidocaine 1% was used for local anesthesia. Catheter: 4 Japanese One-step Yueh catheter. Side: LEFT lower quadrant. Fluid Volume: 6100 ml Color: Clear yellow DISPOSITION: Discarded safely. Complications: None. Patient disposition: Discharged from the department in stable condition. US/US paracentesis abd w [id number] IMPRESSION: Uncomplicated ultrasound-guided paracentesis. Removal of 6100cc
[2024-03-16 11:38] VITALS: BP 164/91; PULSE 94; RESP 18; TEMP 36.4; O2SAT 95
[2024-03-16 12:35] LABS: Cyto Order Verification No Order
[2024-03-16 12:38] LABS: Body Fluid Polynuclear #Cells 0.016; Body Fluid WBC 279 /uL; Monocytes # Body Fluid 0.263; RBC, Body Fluid 0 10^3/uL
[2024-03-16 12:41] LABS: Apprearance, Body Fluid CLOUDY; Color, Body Fluid PALE YELLOW; PATH Referral YES
[2024-03-16 12:42] LABS: Fluid Laterality PARA FLUID
[2024-03-16 13:00] LABS: Total Protein Body Fluid 2.9 g/dL
[2024-03-16 13:01] LABS: Albumin Body Fluid 1.6 g/dL
== END 2024-03-16 12:57 | disposition home or self-care (01) ==
PROVIDERS: Radiology Neuroradiology; PCP Family Medicine; Visit Provider Nurse Practitioner Family
PROC: (CPT 49082; principal; 2024-03-16 12:00)
DX: R18.8 Other ascites (principal)
CPT/HCPCS: 49083; 80503; 82042; 84157; 87070; 87075; 87205; 89050

== ENCOUNTER 2024-03-30 11:21 | Day surgery (SDC) | payer OTHER, SELFPAY ==
[2024-03-30 11:47] VITALS: BP 139/82; PULSE 84; RESP 18; TEMP 36.3; O2SAT 97; BMI 30.1
--- NOTE | 2024-03-30 11:50 | US_ITS ---
WS: [email or web address] ULTRASOUND-GUIDED PARACENTESIS CLINICAL INFORMATION: ASCITES COMPARISON: None. Procedure Informed consent: The risks, benefits, and alternatives of the procedure were discussed with the panfilo ent. Verbal and written consent was obtained. Timeout: A timeout was performed to confirm the correct patient, procedure, and site. Preparation: A suitable skin site was identified. The patient was prepped and draped in usual sterile fashion. Lidocaine 1% was used for local anesthesia. Catheter: 4 Palestinian One-step Yueh catheter. Side: RIGHT lower quadrant. Fluid Volume: 3200 ml Color: Clear yellow DISPOSITION: Discarded safely. Complications: None. Patient disposition: Discharged from the department in stable condition. US/US paracentesis abd w [id number] IMPRESSION: Uncomplicated ultrasound-guided paracentesis. Removal of 3200 cc
[2024-03-30 14:19] LABS: Body Fluid Polynuclear #Cells 0.038; Body Fluid WBC 440 /uL; Monocytes # Body Fluid 0.402
[2024-03-30 14:24] LABS: Cyto Order Verification Order Verified
[2024-03-30 15:19] LABS: Albumin Body Fluid 1.6 g/dL; Total Protein Body Fluid 2.8 g/dL
[2024-03-30 15:35] LABS: Color, Body Fluid PALE YELLOW
[2024-03-30 15:36] LABS: Apprearance, Body Fluid CLEAR
== END 2024-03-30 13:45 | disposition home or self-care (01) ==
PROVIDERS: Radiology Neuroradiology; PCP Family Medicine; Visit Provider Nurse Practitioner Family
PROC: (CPT 49082; principal; 2024-03-30 12:00)
DX: R18.8 Other ascites (principal)
CPT/HCPCS: 49083; 80503; 82042; 82150; 84157; 87070; 87075; 87205; 88112; 89050

== ENCOUNTER 2024-04-27 11:12 | Day surgery (SDC) | payer OTHER, SELFPAY ==
[2024-04-27 11:31] VITALS: BP 159/88; PULSE 89; RESP 18; TEMP 37.1; O2SAT 97
--- NOTE | 2024-04-27 11:57 | US_ITS ---
WS: [email or web address] ULTRASOUND-GUIDED PARACENTESIS CLINICAL INFORMATION: ascites COMPARISON: None. Procedure Informed consent: The risks, benefits, and alternatives of the procedure were discussed with the panfilo ent. Verbal and written consent was obtained. Timeout: A timeout was performed to confirm the correct patient, procedure, and site. Preparation: A suitable skin site was identified. The patient was prepped and draped in usual sterile fashion. Lidocaine 1% was used for local anesthesia. Catheter: 4 Macanese One-step Yueh catheter. Side: RIGHT lower quadrant. Fluid Volume: 3300 ml Color: Clear yellow DISPOSITION: Discarded safely. Complications: None. Patient disposition: Discharged from the department in stable condition. US/US paracentesis abd w [id number] IMPRESSION: Uncomplicated ultrasound-guided paracentesis. Removal of 3300 cc
[2024-04-27 12:18] VITALS: BMI 31.5
[2024-04-27 13:10] LABS: Cyto Order Verification Order Verified
[2024-04-27 13:20] LABS: Mononuclear #, Pertinoneal Fl 0.336 10^3/uL; Polynuclear # Cells, Perit 0.022 10^3/uL; RBC Pertioneal Fluid 1 10^3/uL; WBC Peritoneal Fluid 358 /uL
[2024-04-27 13:36] LABS: Albumin Peritoneal Fluid 1.3 g/dL; Total Protein Peritoneal Fluid 2.5 g/dL
[2024-04-27 13:38] LABS: Appearance, Peritoneal Fluid Hazy (Clear); Color, Peritoneal Fluid Yellow (Pale Yellow)
[2024-04-27 13:39] LABS: Pathology Referral Yes
== END 2024-04-27 13:00 | disposition home or self-care (01) ==
PROVIDERS: Radiology Neuroradiology; PCP Family Medicine; Visit Provider Nurse Practitioner Family
PROC: (CPT 49082; principal; 2024-04-27 12:00)
DX: R18.8 Other ascites (principal)
CPT/HCPCS: 49083; 80503; 82042; 84157; 87070; 87075; 87205; 88112; 89050

== ENCOUNTER → 2024-05-05 11:47 | Outpatient (BNVA) | payer OTHER, SELFPAY | PROVIDERS: PCP Family Medicine; Visit Provider Family Medicine | DX: R41.82 Altered mental status, unspecified (principal); K74.60 Unspecified cirrhosis of liver; E11.9 Type 2 diabetes mellitus without complications; I10 Essential (primary) hypertension | CPT/HCPCS: 80053; 82140; 83036; 85025 ==

== ENCOUNTER → 2024-05-24 11:07 | Day surgery (SDC) | payer OTHER, SELFPAY ==
[2024-05-24 11:18] VITALS: BP 142/74; PULSE 77; RESP 18; TEMP 37; O2SAT 97
[2024-05-24 11:21] VITALS: BMI 30.8
--- NOTE | 2024-05-24 11:38 | US_ITS ---
WS: [email or web address] ULTRASOUND-GUIDED PARACENTESIS CLINICAL INFORMATION: Cirrhosis of liver with ascites COMPARISON: None. Procedure Informed consent: The risks, benefits, and alternatives of the procedure were discussed with the panfilo ent. Verbal and written consent was obtained. Timeout: A timeout was performed to confirm the correct patient, procedure, and site. Preparation: A suitable skin site was identified. The patient was prepped and draped in usual sterile fashion. Lidocaine 1% was used for local anesthesia. Catheter: 4 Malay One-step Biorasiseh catheter. Side: LEFT lower quadrant. Fluid Volume: 3900 ml Color: Clear yellow DISPOSITION: Discarded safely. Complications: None. Patient disposition: Discharged from the department in stable condition. US/US paracentesis abd w [id number] IMPRESSION: Uncomplicated ultrasound-guided paracentesis. Removal of 3900 cc
[2024-05-24 13:02] LABS: Cyto Order Verification Order Verified
[2024-05-24 13:21] LABS: Albumin Peritoneal Fluid 1.4 g/dL; Total Protein Peritoneal Fluid 2.6 g/dL
== END ==
LOC: GILAB 11:08
PROVIDERS: Radiology Neuroradiology; PCP Family Medicine; Visit Provider Nurse Practitioner Family
PROC: (CPT 49082; principal; 2024-05-24 11:30)
DX: K74.60 Unspecified cirrhosis of liver (principal); R18.8 Other ascites
CPT/HCPCS: 49083; 80503; 82042; 84157; 87070; 87075; 87205; 88112; 88305

== ENCOUNTER 2024-06-22 11:11 | Day surgery (SDC) | payer OTHER, SELFPAY ==
--- NOTE | 2024-06-22 11:26 | US_ITS ---
WS: [email or web address] Ultrasound abdomen limited INDICATION: Paracentesis TECHNIQUE: Ultrasound abdomen four-quadrant FINDINGS: Insufficient fluid for paracentesis. US/US abdomen lmt fluid [id number] IMPRESSION: See above
[2024-06-22 11:28] VITALS: BP 145/74; PULSE 71; RESP 16; TEMP 36.7; O2SAT 97
== END 2024-06-22 12:19 | disposition home or self-care (01) ==
LOC: GILAB 11:12
PROVIDERS: Radiology Neuroradiology; PCP Family Medicine; Visit Provider Nurse Practitioner Adult Health
DX: R18.8 Other ascites (principal)
CPT/HCPCS: 49083; 76705

== ENCOUNTER → 2024-08-24 13:31 | Outpatient (BNVA) | payer OTHER, SELFPAY | PROVIDERS: PCP Family Medicine; Visit Provider Family Medicine | DX: L29.9 Pruritus, unspecified (principal) | CPT/HCPCS: 80053; 84443 ==

== ENCOUNTER → 2024-09-13 11:16 | Outpatient (BNVA) | payer OTHER, SELFPAY | PROVIDERS: PCP Family Medicine; Visit Provider Family Medicine | DX: D64.9 Anemia, unspecified (principal); K74.60 Unspecified cirrhosis of liver; E11.9 Type 2 diabetes mellitus without complications | CPT/HCPCS: 80053; 82043; 82607; 82728; 82746; 83036; 83516; 83550; 84443; 85610 ==

== ENCOUNTER 2024-09-14 11:16 | Day surgery (SDC) | payer OTHER, SELFPAY ==
--- NOTE | 2024-09-14 11:46 | US_ITS ---
WS: [email or web address] ULTRASOUND-GUIDED PARACENTESIS CLINICAL INFORMATION: Cirrhosis of liver COMPARISON: None. Procedure Informed consent: The risks, benefits, and alternatives of the procedure were discussed with the patient. Verbal and written consent was obtained. Timeout: A timeout was performed to confirm the correct patient, procedure, and site. Preparation: A suitable skin site was identified. The patient was prepped and draped in usual sterile fashion. Lidocaine 1% was used for local anesthesia. Catheter: 4 Uzbek One-step Yueh catheter. Side: RIGHT lower quadrant. Fluid Volume: 2850 ml Color: Clear yellow DISPOSITION: Discarded safely. Complications: None. Patient disposition: Discharged from the department in stable condition. US/US paracentesis abd w [id number] IMPRESSION: Uncomplicated ultrasound-guided paracentesis. Removal of 2850 cc
[2024-09-14 11:53] VITALS: BP 180/86; PULSE 80; RESP 18; TEMP 36.4; O2SAT 97; BMI 30.8
[2024-09-14 13:40] VITALS: BP 172/88; PULSE 79; RESP 18; TEMP 36.2; O2SAT 98
[2024-09-14 14:31] LABS: Cyto Order Verification No Order
[2024-09-14 14:33] LABS: Appearance, Peritoneal Fluid Hazy (Clear); Color, Peritoneal Fluid Yellow (Pale Yellow); Pathology Referral Yes
[2024-09-14 14:46] LABS: Mononuclear #, Pertinoneal Fl 0.241 10^3/uL; Polynuclear # Cells, Perit 0.018 10^3/uL; RBC Pertioneal Fluid 2 10^3/uL; WBC Peritoneal Fluid 259 /uL
[2024-09-14 15:10] LABS: Total Protein Peritoneal Fluid 1.6 g/dL
== END 2024-09-14 13:40 | disposition home or self-care (01) ==
LOC: GILAB 11:17
PROVIDERS: Radiology Neuroradiology; PCP Family Medicine; Visit Provider Nurse Practitioner Adult Health
PROC: (CPT 49082; principal; 2024-09-14 12:30)
DX: R18.8 Other ascites (principal); K74.60 Unspecified cirrhosis of liver
CPT/HCPCS: 49083; 80503; 84157; 87070; 87075; 87205; 89050

== ENCOUNTER → 2024-09-17 12:06 | Outpatient (BNVA) | payer OTHER, SELFPAY | PROVIDERS: PCP Family Medicine; Visit Provider Family Medicine | DX: R79.89 Other specified abnormal findings of blood chemistry (principal); D64.9 Anemia, unspecified; K74.60 Unspecified cirrhosis of liver; E11.9 Type 2 diabetes mellitus without complications | CPT/HCPCS: 83540; 84439; 84443 ==

== ENCOUNTER → 2024-09-28 11:29 | Day surgery (SDC) | payer OTHER, SELFPAY ==
--- NOTE | 2024-09-28 11:33 | US_ITS ---
WS: [email or web address] ULTRASOUND-GUIDED PARACENTESIS CLINICAL INFORMATION: Cirrhois of liver with ascites Procedure Informed consent: The risks, benefits, and alternatives of the procedure were discussed with the patient. Verbal and written consent was obtained. Timeout: A timeout was performed to confirm the correct patient, procedure, and site. Preparation: A suitable skin site was identified. The patient was prepped and draped in usual sterile fashion. Lidocaine 1% was used for local anesthesia. Catheter: 4 Portuguese One-step Yueh catheter. Side: RIGHT lower quadrant. Fluid Volume: 5300 ml Color: Clear yellow DISPOSITION: Discarded safely. Complications: None. Patient disposition: Discharged from the department in stable condition. US/US paracentesis abd w [id number] IMPRESSION: Uncomplicated ultrasound-guided paracentesis. Removal of 5300 cc
[2024-09-28 12:54] LABS: Mononuclear %, Pleural Fluid 92 %; Polynuclear Cells, Pleural % 8 %
[2024-09-28 12:56] LABS: Appearance, Pleural Fluid CLOUDY (CLEAR); Color, Pleural Fluid Yellow (Pale Yellow); Cyto Order Verification Order Verified; PATH Referal YES
[2024-09-28 13:16] LABS: Albumin Peritoneal Fluid 0.9 g/dL; Total Protein Peritoneal Fluid 1.7 g/dL
== END ==
PROVIDERS: Nurse Practitioner Adult Health; Radiology Neuroradiology; PCP Family Medicine
PROC: (CPT 49082; principal; 2024-09-28 13:00)
DX: R18.8 Other ascites (principal); K74.60 Unspecified cirrhosis of liver
CPT/HCPCS: 49083; 80503; 82042; 84157; 87070; 87075; 87205; 88112; 88305; 89050

== ENCOUNTER → 2024-10-12 11:18 | Day surgery (SDC) | payer OTHER, SELFPAY ==
[2024-10-12 11:25] VITALS: BP 142/82; PULSE 70; RESP 18; TEMP 36.3; O2SAT 99; BMI 32.3
--- NOTE | 2024-10-12 12:21 | US_ITS ---
WS: [email or web address] ULTRASOUND-GUIDED PARACENTESIS CLINICAL INFORMATION: Ascities Procedure Informed consent: The risks, benefits, and alternatives of the procedure were discussed with the patient. Verbal and written consent was obtained. Timeout: A timeout was performed to confirm the correct patient, procedure, and site. Preparation: A suitable skin site was identified. The patient was prepped and draped in usual sterile fashion. Lidocaine 1% was used for local anesthesia. Catheter: 4 Citizen Of [place] One-step Yueh catheter. Side: LEFT lower quadrant. Fluid Volume: 5750 ml Color: Clear yellow DISPOSITION: Discarded safely. Complications: None. Patient disposition: Discharged from the department in stable condition. US/US paracentesis abd w [id number] IMPRESSION: Uncomplicated ultrasound-guided paracentesis. Removal of 5750 cc
[2024-10-12 13:13] LABS: Body Fluid Polynuclear #Cells 0.022; Body Fluid WBC 194 /uL; Monocytes # Body Fluid 0.172; Mononuclear #, Pertinoneal Fl 0.172 10^3/uL; Mononuclear %, Pleural Fluid 89 %; Polynuclear # Cells, Perit 0.022 10^3/uL; Polynuclear Cells, Pleural % 11 %; RBC Pertioneal Fluid 0 10^3/uL; RBC, Body Fluid 0 10^3/uL; WBC Peritoneal Fluid 194 /uL
[2024-10-12 13:20] LABS: Cyto Order Verification Order Verified
[2024-10-12 13:23] LABS: Apprearance, Body Fluid CLOUDY; Color, Body Fluid YELLOW
[2024-10-12 13:24] LABS: Appearance, Pleural Fluid CLOUDY (CLEAR); Color, Pleural Fluid Yellow (Pale Yellow); Fluid Laterality PERITONEAL FLUID; PATH Referal YES; PATH Referral YES; Pathology Referral Yes
[2024-10-12 13:25] LABS: Appearance, Peritoneal Fluid Cloudy (Clear); Color, Peritoneal Fluid Yellow (Pale Yellow)
[2024-10-12] MEDS: albumin 50 G/200 ML BAG 60 G IV (13:42)
[2024-10-12 13:47] LABS: Albumin Peritoneal Fluid 0.8 g/dL; Total Protein Peritoneal Fluid 1.7 g/dL
[2024-10-12 14:05] VITALS: BP 155/83; PULSE 79; RESP 18; O2SAT 98
== END ==
LOC: GILAB 11:18
PROVIDERS: Radiology Neuroradiology; PCP Family Medicine; Visit Provider Nurse Practitioner Adult Health
PROC: (CPT 49082; principal; 2024-10-12 12:30)
DX: K74.60 Unspecified cirrhosis of liver (principal); R18.8 Other ascites; I85.01 Esophageal varices with bleeding
CPT/HCPCS: 49083; 80503; 82042; 84157; 87070; 87075; 87205; 88112; 88305; 89050; 96365; P9046

== ENCOUNTER 2024-11-09 11:13 | Day surgery (SDC) | payer OTHER, BC, MEDICAID, SELFPAY ==
--- NOTE | 2024-11-09 11:35 | US_ITS ---
WS: [email or web address] ULTRASOUND-GUIDED PARACENTESIS CLINICAL INFORMATION: cirrhosis of liver with ascites COMPARISON: None. Procedure Informed consent: The risks, benefits, and alternatives of the procedure were discussed with the patient. Verbal and written consent was obtained. Timeout: A timeout was performed to confirm the correct patient, procedure, and site. Preparation: A suitable skin site was identified. The patient was prepped and draped in usual sterile fashion. Lidocaine 1% was used for local anesthesia. Catheter: 4 Solomon Islander One-step NSL Renewable Powereh catheter. Side: LEFT lower quadrant. Fluid Volume: 5800 ml Color: Clear yellow DISPOSITION: Discarded safely. Complications: None. Patient disposition: Discharged from the department in stable condition. US/US paracentesis abd w [id number] IMPRESSION: Uncomplicated ultrasound-guided paracentesis. Removal of 5800 cc
[2024-11-09 11:38] VITALS: BP 135/74; PULSE 70; RESP 18; TEMP 36.8; O2SAT 95; BMI 32.0
[2024-11-09] MEDS: albumin 50 G/200 ML BAG 60 G IV (13:03)
[2024-11-09 13:28] LABS: Cyto Order Verification No Order
[2024-11-09 13:29] LABS: Apprearance, Body Fluid CLOUDY; Body Fluid Polynuclear #Cells 0.018; Body Fluid WBC 261 /uL; Color, Body Fluid YELLOW; Fluid Laterality PERITONEAL FLUID; Monocytes # Body Fluid 0.243; PATH Referral YES
[2024-11-09 13:49] LABS: Albumin Body Fluid 1.1 g/dL; Total Protein Body Fluid 1.9 g/dL
== END 2024-11-09 13:29 | disposition home or self-care (01) ==
LOC: GILAB 11:14
PROVIDERS: Radiology Neuroradiology; PCP Family Medicine; Visit Provider Nurse Practitioner Adult Health
PROC: (CPT 49082; principal; 2024-11-09 12:30)
DX: R18.8 Other ascites (principal); K74.60 Unspecified cirrhosis of liver
CPT/HCPCS: 49083; 80503; 82042; 84157; 87070; 87075; 87205; 89050; 96365; P9046

== ENCOUNTER 2024-11-23 11:17 | Day surgery (SDC) | payer OTHER, BC, MEDICAID, SELFPAY ==
[2024-11-23 11:33] VITALS: BMI 32.3
--- NOTE | 2024-11-23 11:39 | US_ITS ---
WS: [email or web address] ULTRASOUND-GUIDED PARACENTESIS CLINICAL INFORMATION: Cirrhosis of liver with ascites COMPARISON: None. Procedure Informed consent: The risks, benefits, and alternatives of the procedure were discussed with the patient. Verbal and written consent was obtained. Timeout: A timeout was performed to confirm the correct patient, procedure, and site. Preparation: A suitable skin site was identified. The patient was prepped and draped in usual sterile fashion. Lidocaine 1% was used for local anesthesia. Catheter: 4 Mauritian One-step [place] Pharmaeh catheter. Side: RIGHT lower quadrant. Fluid Volume: 4400 ml Color: Clear yellow DISPOSITION: Discarded safely. Complications: None. Patient disposition: Discharged from the department in stable condition. US/US paracentesis abd w [id number] IMPRESSION: Uncomplicated ultrasound-guided paracentesis. Removal of 4400 cc
[2024-11-23 13:29] LABS: Mononuclear #, Pertinoneal Fl 0.225 10^3/uL; Polynuclear # Cells, Perit 0.015 10^3/uL; RBC Pertioneal Fluid 2 10^3/uL; WBC Peritoneal Fluid 240 /uL
[2024-11-23 13:30] LABS: Appearance, Peritoneal Fluid Cloudy (Clear); Color, Peritoneal Fluid Amber (Pale Yellow); Cyto Order Verification Order Verified
[2024-11-23 13:36] LABS: Pathology Referral Yes
[2024-11-23 13:47] LABS: Albumin Peritoneal Fluid 1.2 g/dL; Total Protein Peritoneal Fluid 2.1 g/dL
== END 2024-11-23 13:25 | disposition home or self-care (01) ==
LOC: GILAB 11:18
PROVIDERS: Radiology Neuroradiology; PCP Family Medicine; Visit Provider Nurse Practitioner Adult Health
PROC: (CPT 49082; principal; 2024-11-23 12:30)
DX: R18.8 Other ascites (principal); K74.60 Unspecified cirrhosis of liver
CPT/HCPCS: 49083; 80503; 82042; 84157; 87070; 87075; 87205; 88112; 88305; 89050; 96365

== ENCOUNTER → 2024-12-14 13:22 | Outpatient (BNVA) | payer OTHER, BC, MEDICAID, SELFPAY | PROVIDERS: PCP Family Medicine; Visit Provider Family Medicine | DX: E03.8 Other specified hypothyroidism (principal) | CPT/HCPCS: 84439; 84443 ==

== ENCOUNTER → 2024-12-21 11:08 | Day surgery (SDC) | payer OTHER, BC, MEDICAID, SELFPAY ==
[2024-12-21 11:23] VITALS: BP 155/94; PULSE 80; RESP 18; TEMP 36.6; O2SAT 93
[2024-12-21 11:25] VITALS: BMI 32.3
--- NOTE | 2024-12-21 11:29 | US_ITS ---
WS: [email or web address] ULTRASOUND-GUIDED PARACENTESIS CLINICAL INFORMATION: cirrhosis Procedure Informed consent: The risks, benefits, and alternatives of the procedure were discussed with the patient. Verbal and written consent was obtained. Timeout: A timeout was performed to confirm the correct patient, procedure, and site. Preparation: A suitable skin site was identified. The patient was prepped and draped in usual sterile fashion. Lidocaine 1% was used for local anesthesia. Catheter: 4 Setswana One-step Yueh catheter. Side: RIGHT lower quadrant. Fluid Volume: 5300 ml Color: Clear yellow DISPOSITION: Discarded safely. Complications: None. Patient disposition: Discharged from the department in stable condition. US/US paracentesis abd w [id number] IMPRESSION: Uncomplicated ultrasound-guided paracentesis. Removal of 5300 cc
[2024-12-21 12:34] LABS: Mononuclear #, Pertinoneal Fl 0.238 10^3/uL; Mononuclear %, Pertinoneal Fl 92.600 %; Polynuclear # Cells, Perit 0.019 10^3/uL; Polynuclear % Cells,Perit 7.400 %; RBC Pertioneal Fluid 1 10^3/uL; WBC Peritoneal Fluid 257 /uL
[2024-12-21 12:44] LABS: Appearance, Peritoneal Fluid Cloudy (Clear); Color, Peritoneal Fluid Yellow (Pale Yellow); Cyto Order Verification Order Verified; Pathology Referral Yes
[2024-12-21 13:19] LABS: Albumin Peritoneal Fluid 1.0 g/dL
== END ==
LOC: GILAB 11:08
PROVIDERS: Radiology Neuroradiology; PCP Family Medicine; Visit Provider Nurse Practitioner Adult Health
PROC: (CPT 49082; principal; 2024-12-21 12:30)
DX: R18.8 Other ascites (principal); K74.60 Unspecified cirrhosis of liver
CPT/HCPCS: 49083; 80503; 82042; 84157; 87070; 87075; 87205; 88112; 88305; 89050

== ENCOUNTER 2025-01-04 11:17 | Day surgery (SDC) | payer OTHER, BC, MEDICAID, SELFPAY ==
--- NOTE | 2025-01-04 11:33 | US_ITS ---
WS: [email or web address] ULTRASOUND-GUIDED PARACENTESIS CLINICAL INFORMATION: ASCITES COMPARISON: None. Procedure Informed consent: The risks, benefits, and alternatives of the procedure were discussed with the patient. Verbal and written consent was obtained. Timeout: A timeout was performed to confirm the correct patient, procedure, and site. Preparation: A suitable skin site was identified. The patient was prepped and draped in usual sterile fashion. Lidocaine 1% was used for local anesthesia. Catheter: 4 Telugu One-step Yueh catheter. Side: LEFT lower quadrant. Fluid Volume: 6175 ml Color: Clear yellow DISPOSITION: Discarded safely. Complications: None. Patient disposition: Discharged from the department in stable condition. US/US paracentesis abd w [id number] IMPRESSION: Uncomplicated ultrasound-guided paracentesis. Removal of 6175 cc
[2025-01-04 11:34] VITALS: BP 165/87; PULSE 65; RESP 18; TEMP 36.2; O2SAT 97; BMI 32.3
[2025-01-04] MEDS: albumin 50 G/200 ML BAG 60 G IV (13:13)
[2025-01-04 13:48] LABS: Mononuclear #, Pertinoneal Fl 0.188 10^3/uL; Mononuclear %, Pertinoneal Fl 89.100 %; Polynuclear # Cells, Perit 0.023 10^3/uL; Polynuclear % Cells,Perit 10.900 %; RBC Pertioneal Fluid 1 10^3/uL; WBC Peritoneal Fluid 211 /uL
[2025-01-04 13:52] LABS: Cyto Order Verification Y
[2025-01-04 14:25] LABS: Albumin Peritoneal Fluid 1.0 g/dL
[2025-01-04 14:28] LABS: Appearance, Peritoneal Fluid Clear (Clear); Color, Peritoneal Fluid Pale Yellow (Pale Yellow)
== END 2025-01-04 13:35 | disposition home or self-care (01) ==
LOC: GILAB 13:53
PROVIDERS: Radiology Neuroradiology; PCP Family Medicine; Visit Provider Nurse Practitioner Adult Health
PROC: (CPT 49082; principal; 2025-01-04 12:30)
DX: R18.8 Other ascites (principal); K74.60 Unspecified cirrhosis of liver
CPT/HCPCS: 49083; 80503; 82042; 84157; 87070; 87075; 87205; 88112; 88305; 89050; 96365; P9046

== ENCOUNTER 2025-01-13 10:48 | Outpatient (CLI) | payer OTHER, BC, MEDICAID, SELFPAY ==
[2025-01-13 12:09] LABS: Estmated Average Glucose 171; Hemoglobin A1C 7.6 % (4.0-6.0)
[2025-01-13 12:22] LABS: Creatinine Urine, Random 81 mg/dL (39-259)
[2025-01-13 12:25] LABS: Alanine Aminotransferase 54 U/L (0-41); Albumin Level 3.3 g/dL (3.5-5.2); Alkaline Phosphatase 299 U/L (40-130); Anion Gap 13.6 (5-19); Aspartate Amino Transferase 74 U/L (0-40); Blood Urea Nitrogen 27 mg/dL (8-23); Calcium 8.6 mg/dL (8.5-10.5); Carbon Dioxide 26 mmol/L (22-29); Chloride 97 mmol/L (98-107); Cholesterol 176 mg/dL (0-200); Globulin 4.0 g/dL (1.3-4.6); Glucose 196 mg/dL (65-115); HDL Cholesterol 53 mg/dL (60-100); Osmolality Calculated 285 mOsm/kg (285-295); Potassium 4.6 mmol/L (3.5-5.1); Sodium 132 mmol/L (136-145); Total Protein 7.3 g/dL (6.6-8.7); Triglycerides 95 mg/dL (0-150)
[2025-01-13 12:38] LABS: Microalbum Creatinine Ratio Ur 568 mg/dL (0-20)
== END 2025-01-13 10:49 | disposition home or self-care (01) ==
PROVIDERS: PCP Family Medicine; Visit Provider Internal Medicine
DX: E11.9 Type 2 diabetes mellitus without complications (principal); E03.8 Other specified hypothyroidism
CPT/HCPCS: 36415; 80053; 80061; 82044; 82947; 83036; 84681; 86337; 86341

== ENCOUNTER 2025-01-18 11:17 | Day surgery (SDC) | payer OTHER, BC, MEDICAID, SELFPAY ==
--- NOTE | 2025-01-18 11:27 | US_ITS ---
WS: [email or web address] ULTRASOUND-GUIDED PARACENTESIS CLINICAL INFORMATION: cirrhosis of liver COMPARISON: None. Procedure Informed consent: The risks, benefits, and alternatives of the procedure were discussed with the patient. Verbal and written consent was obtained. Timeout: A timeout was performed to confirm the correct patient, procedure, and site. Preparation: A suitable skin site was identified. The patient was prepped and draped in usual sterile fashion. Lidocaine 1% was used for local anesthesia. Catheter: 4 Portuguese One-step Yueh catheter. Side: RIGHT lower quadrant. Fluid Volume: 6250 ml Color: Clear yellow DISPOSITION: Discarded safely. Complications: None. Patient disposition: Discharged from the department in stable condition. US/US paracentesis abd w [id number] IMPRESSION: Uncomplicated ultrasound-guided paracentesis. Removal of 6250cc
[2025-01-18 11:32] VITALS: BP 147/77; PULSE 66; RESP 16; TEMP 36.4; O2SAT 96; BMI 32.0
[2025-01-18 12:35] LABS: Cyto Order Verification Order Verified
[2025-01-18 12:56] LABS: Mononuclear #, Pertinoneal Fl 0.193 10^3/uL; Mononuclear %, Pertinoneal Fl 92.800 %; Polynuclear # Cells, Perit 0.015 10^3/uL; Polynuclear % Cells,Perit 7.200 %; RBC Pertioneal Fluid 1 10^3/uL; WBC Peritoneal Fluid 208 /uL
[2025-01-18 13:01] LABS: Appearance, Peritoneal Fluid Cloudy (Clear); Color, Peritoneal Fluid Yellow (Pale Yellow); Pathology Referral Yes
[2025-01-18] MEDS: albumin 50 G/200 ML BAG 60 G IV (13:12)
[2025-01-18 13:22] LABS: Albumin Peritoneal Fluid 1.0 g/dL
== END 2025-01-18 13:13 | disposition home or self-care (01) ==
LOC: GILAB 11:18
PROVIDERS: Radiology Neuroradiology; PCP Family Medicine; Visit Provider Nurse Practitioner Adult Health
PROC: (CPT 49082; principal; 2025-01-18 12:30)
DX: K74.60 Unspecified cirrhosis of liver (principal)
CPT/HCPCS: 49083; 80503; 82042; 87070; 87075; 87205; 88112; 88305; 89050; 96365; P9046

== ENCOUNTER 2025-01-21 08:17 | Outpatient (CLI) | payer OTHER, BC, MEDICAID, SELFPAY ==
--- NOTE | 2025-01-21 08:30 | USCV_ITS ---
Marcos Deluca Age: 64 Gender: M : 1960 Exam Date: 01/21/2025 08:47 Ordering Phys: Cynthia Ca MD Technologist: OPAL Exam Location: [facility] [place] Indication: new murmur BP: 164 / 92 HR: 61 Rhythm: Sinus Technical Quality: Adequate MEASUREMENTS (Male / Female) Normal Values 2D ECHO LV Diastolic Diameter PLAX 4.6 cm 4.2 - 5.9 / 3.9 - 5.3 cm IVS Diastolic Thickness 0.9 cm 0.6 - 1.0 / 0.6 - 0.9 cm IVS Systolic Thickness 1.3 cm LVPW Diastolic Thickness 1.5 cm 0.6 - 1.0 / 0.6 - 0.9 cm LVPW Systolic Thickness 1.5 cm LVOT Diameter 2.0 cm LV Ejection Fraction 2D Teich 67.9 % LV Ejection Fraction MOD 4C 67.6 % LV Ejection Fraction MOD 2C 58.3 % LV Ejection Fraction 2C AL 61.7 % LA Diameter 3.8 cm Aorta at Sinotubular Diameter 2.6 cm IVC Diameter 1.8 cm M-MODE LA Ao Ratio MM 1.5 AV Cusp Separation MM 1.3 cm DOPPLER AV Peak Velocity 270.7 cm/s LVOT Peak Velocity 99.0 cm/s AV Area Cont Eq vti 1.3 cm squared AV Area Cont Eq pk 1.2 cm squared MV Peak Velocity 106.0 cm/s MV Area PHT 3.1 cm squared Mitral E to A Ratio 0.9 TV Peak Velocity 278.0 cm/s TR Peak Velocity 355.0 cm/s TR Peak Gradient 50.4 mmHg TR Mean Velocity 309.0 cm/s TR Mean Gradient 39.7 mmHg TR Velocity Time Integral 109.0 cm PV Peak Velocity 99.0 cm/s RV Ejection Time 0.3 s FINDINGS Left Ventricle Normal left ventricular size and systolic function, EF 67%. No regional wall motion abnormalities. Mild left ventricular hypertrophy. Right Ventricle The right ventricle is normal in size and function. Right Atrium The right atrium is normal in size. Left Atrium Moderately increased left atrial size. Mitral Valve Mild mitral annular calcification. Thickened mitral valve. Aortic Valve Moderate aortic valve calcification. Moderate aortic valve stenosis, mean gradient 19 mmHg, ARCELIA 1.3 cm squared. Possible bicuspid aortic valve.trace aortic valve regurgitation. Peak aortic velocity of 2.73 m/s with a peak gradient of 30 mmHg Tricuspid Valve No gross abnormalities noted Pulmonic Valve Trace pulmonary valve regurgitation. Pericardium No pericardial effusion. Aorta Normal aortic annulus size. IVC Normal inferior vena cava. CONCLUSIONS Moderate aortic valve stenosis, mean gradient 19 mmHg, ARCELIA 1.3 cm squared. Possible bicuspid aortic valve. Trace aortic valve regurgitation. Peak aortic velocity of 2.73 m/s with a peak gradient of 30 mmHg Normal left ventricular size and systolic function, EF 67%. No regional wall motion abnormalities. Mild left ventricular hypertrophy. Moderately increased left atrial size. Mild mitral annular calcification. Thickened mitral valve. There is no pericardial effusion. There are no intracardiac masses. No similar previous studies are available for comparison Dr Star Polk MD [facility] (Electronically Signed) Final Date: 22 January 2025 12:38 S
== END 2025-01-21 08:18 | disposition home or self-care (01) ==
LOC: RAD 08:18
PROVIDERS: PCP Family Medicine; Visit Provider Family Medicine
DX: R01.1 Cardiac murmur, unspecified (principal); I42.2 Other hypertrophic cardiomyopathy; I05.9 Rheumatic mitral valve disease, unspecified; I70.0 Atherosclerosis of aorta; I35.2 Nonrheumatic aortic (valve) stenosis with insufficiency; I37.1 Nonrheumatic pulmonary valve insufficiency
CPT/HCPCS: 93306

== ENCOUNTER 2025-01-27 14:23 | Outpatient (CLI) | payer OTHER, BC, MEDICAID, SELFPAY | END 2025-01-27 14:24 | disposition home or self-care (01) | PROVIDERS: PCP Family Medicine; Visit Provider Internal Medicine | DX: E11.9 Type 2 diabetes mellitus without complications (principal); E03.8 Other specified hypothyroidism | CPT/HCPCS: 36415; 86337; 86341 ==

== ENCOUNTER 2025-02-01 10:59 | Day surgery (SDC) | payer OTHER, BC, MEDICAID, SELFPAY ==
[2025-02-01 11:18] VITALS: BMI 32.3
[2025-02-01 11:20] VITALS: BP 164/87; PULSE 78; RESP 18; TEMP 36.4; O2SAT 95
--- NOTE | 2025-02-01 11:36 | US_ITS ---
WS: [email or web address] ULTRASOUND-GUIDED PARACENTESIS CLINICAL INFORMATION: CIRRHOSIS OF LIVER WITH ASCITES COMPARISON: None. Procedure Informed consent: The risks, benefits, and alternatives of the procedure were discussed with the patient. Verbal and written consent was obtained. Timeout: A timeout was performed to confirm the correct patient, procedure, and site. Preparation: A suitable skin site was identified. The patient was prepped and draped in usual sterile fashion. Lidocaine 1% was used for local anesthesia. Catheter: 4 Slovenian One-step Hoodineh catheter. Side: RIGHT lower quadrant. Fluid Volume: 5300 ml Color: Clear yellow DISPOSITION: Discarded safely. Complications: None. Patient disposition: Discharged from the department in stable condition. US/US paracentesis abd w [id number] IMPRESSION: Uncomplicated ultrasound-guided paracentesis. Removal of 5300 cc
[2025-02-01 13:05] LABS: Cyto Order Verification Order Verified
[2025-02-01] MEDS: albumin 50 G/200 ML BAG 60 G IV (13:16)
[2025-02-01 13:37] LABS: Albumin Peritoneal Fluid 1.0 g/dL
== END 2025-02-01 13:51 | disposition home or self-care (01) ==
LOC: GILAB 11:00
PROVIDERS: Radiology Neuroradiology; PCP Family Medicine; Visit Provider Nurse Practitioner Adult Health
PROC: (CPT 49082; principal; 2025-02-01 12:30)
DX: K70.31 Alcoholic cirrhosis of liver with ascites (principal)
CPT/HCPCS: 49083; 82042; 84157; 87070; 87075; 87205; 88112; 88305; P9046

== ENCOUNTER → 2025-02-15 11:19 | Day surgery (SDC) | payer OTHER, MEDICAID, SELFPAY ==
--- NOTE | 2025-02-15 11:31 | US_ITS ---
WS: [email or web address] ULTRASOUND-GUIDED PARACENTESIS CLINICAL INFORMATION: cirrhosis of liver with ascites COMPARISON: None. Procedure Informed consent: The risks, benefits, and alternatives of the procedure were discussed with the patient. Verbal and written consent was obtained. Timeout: A timeout was performed to confirm the correct patient, procedure, and site. Preparation: A suitable skin site was identified. The patient was prepped and draped in usual sterile fashion. Lidocaine 1% was used for local anesthesia. Catheter: 4 Palauan One-step Mimubeh catheter. Side: LEFT Lower quadrant. Fluid Volume: 7750 ml Color: clear yellow DISPOSITION: Discarded safely. Complications: None. Patient disposition: Discharged from the department in stable condition. US/US paracentesis abd w [id number] IMPRESSION: Uncomplicated ultrasound-guided paracentesis. Removal of 7750cc
[2025-02-15 11:33] VITALS: BP 156/87; PULSE 78; RESP 18; TEMP 36.9; O2SAT 95
[2025-02-15] MEDS: albumin 50 G/200 ML BAG 60 G IV (13:00)
[2025-02-15 13:45] LABS: Cyto Order Verification Order Verified
[2025-02-15 14:04] LABS: Albumin Peritoneal Fluid 1.0 g/dL
== END ==
LOC: GILAB 11:19
PROVIDERS: Radiology Neuroradiology; PCP Family Medicine; Visit Provider Nurse Practitioner Adult Health
PROC: (CPT 49082; principal; 2025-02-15 12:30)
DX: K74.60 Unspecified cirrhosis of liver (principal); R18.8 Other ascites
CPT/HCPCS: 49083; 82042; 84157; 87070; 87075; 87205; 88112; 88305; P9046

== ENCOUNTER 2025-03-01 11:23 | Day surgery (SDC) | payer OTHER, MEDICAID, SELFPAY ==
[2025-03-01 11:33] VITALS: BMI 32.3
[2025-03-01 11:37] VITALS: BP 157/85; PULSE 72; RESP 18; TEMP 36.6; O2SAT 96
--- NOTE | 2025-03-01 11:46 | US_ITS ---
WS: [email or web address] ULTRASOUND-GUIDED PARACENTESIS CLINICAL INFORMATION: ascites COMPARISON: None. Procedure Informed consent: The risks, benefits, and alternatives of the procedure were discussed with the patient. Verbal and written consent was obtained. Timeout: A timeout was performed to confirm the correct patient, procedure, and site. Preparation: A suitable skin site was identified. The patient was prepped and draped in usual sterile fashion. Lidocaine 1% was used for local anesthesia. Catheter: 4 Belarusian One-step Yueh catheter. Side: LEFT Lower quadrant. Fluid Volume: 6500 ml Color: clear yellow DISPOSITION: Discarded safely. Complications: None. Patient disposition: Discharged from the department in stable condition. US/US paracentesis abd w [id number] IMPRESSION: Uncomplicated ultrasound-guided paracentesis. Removal of 6500
[2025-03-01] MEDS: albumin 50 G/200 ML BAG 60 G IV (13:33)
[2025-03-01 13:56] LABS: Mononuclear #, Pertinoneal Fl 0.197 10^3/uL; Mononuclear %, Pertinoneal Fl 92.500 %; Polynuclear # Cells, Perit 0.016 10^3/uL; Polynuclear % Cells,Perit 7.500 %; RBC Pertioneal Fluid 0 10^3/uL; WBC Peritoneal Fluid 213 /uL
[2025-03-01 14:07] LABS: Appearance, Peritoneal Fluid Cloudy (Clear); Color, Peritoneal Fluid Yellow (Pale Yellow); Cyto Order Verification Order Verified; Pathology Referral Yes
[2025-03-01 14:22] LABS: Albumin Peritoneal Fluid 1.1 g/dL
== END 2025-03-01 13:54 | disposition home or self-care (01) ==
LOC: GILAB 11:23
PROVIDERS: Radiology Neuroradiology; PCP Family Medicine; Visit Provider Nurse Practitioner Adult Health
PROC: (CPT 49082; principal; 2025-03-01 12:30)
DX: R18.8 Other ascites (principal)
CPT/HCPCS: 49083; 80503; 82042; 84157; 87070; 87075; 87205; 88112; 88305; 89050; P9046

== ENCOUNTER 2025-03-15 11:18 | Day surgery (SDC) | payer MEDICARE, OTHER, MEDICAID, SELFPAY ==
[2025-03-15 11:41] VITALS: BP 168/86; PULSE 70; RESP 18; TEMP 36.6; O2SAT 96; BMI 32.3
--- NOTE | 2025-03-15 11:41 | US_ITS ---
WS: [email or web address] ULTRASOUND-GUIDED PARACENTESIS CLINICAL INFORMATION: ascites COMPARISON: None. Procedure Informed consent: The risks, benefits, and alternatives of the procedure were discussed with the patient. Verbal and written consent was obtained. Timeout: A timeout was performed to confirm the correct patient, procedure, and site. Preparation: A suitable skin site was identified. The patient was prepped and draped in usual sterile fashion. Lidocaine 1% was used for local anesthesia. Catheter: 4 Yakut One-step Yueh catheter. Side: LEFT lower quadrant. Fluid Volume: 6550 ml Color: Clear yellow DISPOSITION: Discarded safely. Complications: None. Patient disposition: Discharged from the department in stable condition. US/US paracentesis abd w [id number] IMPRESSION: Uncomplicated ultrasound-guided paracentesis. Removal of 6550cc
--- NOTE | 2025-03-15 12:56 | PC.NURSE ---
This RN assuming care of pt during procedure at this time
--- NOTE | 2025-03-15 13:03 | PC.NURSE ---
Patient recent order states come every two weeks for para and get albumin every 4 weeks. Pt received albumin 2 weeks ago at last drain. Albumin not given today.Irving ordered and sent back [facility].
[2025-03-15 13:12] VITALS: BP 164/84; PULSE 75; RESP 16; O2SAT 98
[2025-03-15 13:47] LABS: Mononuclear #, Pertinoneal Fl 0.177 10^3/uL; Mononuclear %, Pertinoneal Fl 89.000 %; Polynuclear # Cells, Perit 0.022 10^3/uL; Polynuclear % Cells,Perit 11.000 %; RBC Pertioneal Fluid 1 10^3/uL; WBC Peritoneal Fluid 199 /uL
[2025-03-15 13:49] LABS: Cyto Order Verification Order Verified
[2025-03-15 13:50] LABS: Appearance, Peritoneal Fluid Cloudy (Clear); Color, Peritoneal Fluid Yellow (Pale Yellow); Pathology Referral Yes
[2025-03-15 14:56] LABS: Albumin Peritoneal Fluid 1.0 g/dL
== END 2025-03-15 13:16 | disposition home or self-care (01) ==
LOC: GILAB 11:24
PROVIDERS: Radiology Neuroradiology; PCP Family Medicine; Visit Provider Nurse Practitioner Adult Health
PROC: (CPT 49082; principal; 2025-03-15 12:00)
DX: R18.8 Other ascites (principal)
CPT/HCPCS: 49083; 80503; 82042; 87070; 87075; 87205; 88112; 88305; 89050

== ENCOUNTER 2025-03-29 11:13 | Day surgery (SDC) | payer MEDICARE, MEDICAID, SELFPAY ==
--- NOTE | 2025-03-29 11:28 | US_ITS ---
WS: [email or web address] ULTRASOUND-GUIDED PARACENTESIS CLINICAL INFORMATION: cirrhosis of liver Procedure Informed consent: The risks, benefits, and alternatives of the procedure were discussed with the patient. Verbal and written consent was obtained. Timeout: A timeout was performed to confirm the correct patient, procedure, and site. Preparation: A suitable skin site was identified. The patient was prepped and draped in usual sterile fashion. Lidocaine 1% was used for local anesthesia. Catheter: 4 Iraqi One-step Yueh catheter. Side: LEFT lower quadrant. Fluid Volume: 7150 ml Color: Clear yellow DISPOSITION: Discarded safely. Complications: None. Patient disposition: Discharged from the department in stable condition. US/US paracentesis abd w [id number] IMPRESSION: Uncomplicated ultrasound-guided paracentesis. Removal of 7150 cc
[2025-03-29 11:32] VITALS: BMI 32.3
[2025-03-29 11:33] VITALS: BP 178/97; PULSE 79; RESP 18; TEMP 36.6; O2SAT 99
[2025-03-29] MEDS: albumin 50 G/200 ML BAG 60 G IV (12:44)
[2025-03-29 13:23] LABS: Appearance, Peritoneal Fluid Cloudy (Clear); Color, Peritoneal Fluid Pale Yellow (Pale Yellow); Cyto Order Verification No Order; Pathology Referral Yes
[2025-03-29 13:25] LABS: Mononuclear #, Pertinoneal Fl 0.183 10^3/uL; Mononuclear %, Pertinoneal Fl 91.500 %; Polynuclear # Cells, Perit 0.017 10^3/uL; Polynuclear % Cells,Perit 8.500 %; RBC Pertioneal Fluid 0 10^3/uL; WBC Peritoneal Fluid 200 /uL
[2025-03-29 13:53] LABS: Albumin Peritoneal Fluid 0.9 g/dL
== END 2025-03-29 13:15 | disposition home or self-care (01) ==
LOC: GILAB 11:15
PROVIDERS: Radiology Neuroradiology; PCP Family Medicine; Visit Provider Nurse Practitioner Adult Health
PROC: (CPT 49082; principal; 2025-03-29 12:00)
DX: R18.8 Other ascites (principal)
CPT/HCPCS: 49083; 80503; 82042; 84157; 87070; 87075; 87205; 89050; P9046

== ENCOUNTER 2025-04-04 11:34 | Outpatient (CLI) | payer MEDICARE, MEDICAID, SELFPAY ==
[2025-04-04 12:47] LABS: Hematocrit 33.5 % (37-53); Hemoglobin 11.20 g/dL (11.27-16.99); Mean Corpuscular HGB Conc 33.4 g/dL (30-55); Mean Corpuscular Hemoglobin 30.7 pg (27-33); Mean Corpuscular Volume 91.8 fl (82-101); Nucleated Red Blood Cells % 0 %; Platelet Count 111 10^3/cmm (157-399); Red Blood Count 3.65 10^6/uL (3.85-5.65); White Blood Count 4.14 10^3/uL (3.29-11.43)
[2025-04-04 13:06] LABS: Alanine Aminotransferase 40 U/L (0-41); Albumin Level 3.2 g/dL (3.5-5.2); Alkaline Phosphatase 231 U/L (40-130); Anion Gap 12.7 (5-19); Aspartate Amino Transferase 55 U/L (0-40); Blood Urea Nitrogen 30 mg/dL (8-23); Calcium 9.1 mg/dL (8.5-10.5); Carbon Dioxide 26 mmol/L (22-29); Chloride 100 mmol/L (98-107); Cholesterol 183 mg/dL (0-200); Globulin 3.9 g/dL (1.3-4.6); Glucose 185 mg/dL (65-115); HDL Cholesterol 46 mg/dL (60-100); Osmolality Calculated 289 mOsm/kg (285-295); Potassium 4.7 mmol/L (3.5-5.1); Sodium 134 mmol/L (136-145); Total Protein 7.1 g/dL (6.6-8.7); Triglycerides 99 mg/dL (0-150)
[2025-04-04 13:11] LABS: Creatinine Urine, Random 29 mg/dL (39-259)
[2025-04-04 13:12] LABS: Microalbum Creatinine Ratio Ur 621 mg/dL (0-20)
[2025-04-04 13:13] LABS: Estmated Average Glucose 180; Hemoglobin A1C 7.9 % (4.0-6.0)
[2025-04-04 13:25] LABS: INR 1.01 (0.8-1.2); Prothrombin Time 14.00 SECONDS (12.1-14.9)
[2025-04-04 13:52] LABS: Tumor Marker Alpha Fetoprotein 4.0 ng/mL (0-8.3)
== END 2025-04-04 11:35 | disposition home or self-care (01) ==
PROVIDERS: Internal Medicine; PCP Family Medicine; Visit Provider Nurse Practitioner Adult Health
DX: E11.9 Type 2 diabetes mellitus without complications (principal); K74.60 Unspecified cirrhosis of liver; R18.8 Other ascites; L29.9 Pruritus, unspecified
CPT/HCPCS: 36415; 80053; 80061; 82044; 82105; 83036; 85025; 85610

== ENCOUNTER → 2025-04-12 11:33 | Day surgery (SDC) | payer MEDICARE, OTHER, MEDICAID, SELFPAY ==
[2025-04-12 11:48] VITALS: BP 166/88; PULSE 69; RESP 18; TEMP 35.9; O2SAT 97
[2025-04-12 11:59] VITALS: BMI 32.3
--- NOTE | 2025-04-12 12:07 | US_ITS ---
WS: [email or web address] ULTRASOUND-GUIDED PARACENTESIS CLINICAL INFORMATION: ascites COMPARISON: None. Procedure Informed consent: The risks, benefits, and alternatives of the procedure were discussed with the patient. Verbal and written consent was obtained. Timeout: A timeout was performed to confirm the correct patient, procedure, and site. Preparation: A suitable skin site was identified. The patient was prepped and draped in usual sterile fashion. Lidocaine 1% was used for local anesthesia. Catheter: 4 Hebrew One-step Yueh catheter. Side: RIGHT lower quadrant. Fluid Volume: 6000 ml Color: Clear yellow DISPOSITION: Discarded safely. Complications: None. Patient disposition: Discharged from the department in stable condition. US/US paracentesis abd w [id number] IMPRESSION: Uncomplicated ultrasound-guided paracentesis. Removal of 6000 cc
[2025-04-12 13:05] LABS: Cyto Order Verification Order Verified
[2025-04-12 13:08] LABS: Appearance, Peritoneal Fluid Cloudy (Clear); Color, Peritoneal Fluid Pale Yellow (Pale Yellow); Pathology Referral Yes
[2025-04-12 13:09] LABS: Mononuclear #, Pertinoneal Fl 0.206 10^3/uL; Mononuclear %, Pertinoneal Fl 94.100 %; Polynuclear # Cells, Perit 0.013 10^3/uL; Polynuclear % Cells,Perit 5.900 %; RBC Pertioneal Fluid 0 10^3/uL; WBC Peritoneal Fluid 219 /uL
[2025-04-12 13:45] LABS: Albumin Peritoneal Fluid 1.2 g/dL
== END ==
PROVIDERS: Radiology Neuroradiology; PCP Family Medicine; Visit Provider Nurse Practitioner Adult Health
PROC: (CPT 49082; principal; 2025-04-12 12:30)
DX: R18.8 Other ascites (principal)
CPT/HCPCS: 49083; 80503; 82042; 84157; 87070; 87075; 87205; 88112; 89050

== ENCOUNTER 2025-04-26 11:26 | Day surgery (SDC) | payer MEDICARE, OTHER, MEDICAID, SELFPAY ==
[2025-04-26 11:43] VITALS: BP 155/71; PULSE 75; RESP 18; TEMP 36.2; O2SAT 97; BMI 32.3
--- NOTE | 2025-04-26 11:45 | US_ITS ---
WS: [email or web address] ULTRASOUND-GUIDED PARACENTESIS CLINICAL INFORMATION: cirrhosis COMPARISON: None. Procedure Informed consent: The risks, benefits, and alternatives of the procedure were discussed with the patient. Verbal and written consent was obtained. Timeout: A timeout was performed to confirm the correct patient, procedure, and site. Preparation: A suitable skin site was identified. The patient was prepped and draped in usual sterile fashion. Lidocaine 1% was used for local anesthesia. Catheter: 4 Citizen Of [place] One-step Yueh catheter. Side: RIGHT lower quadrant. Fluid Volume: 6000 ml Color: Clear yellow DISPOSITION: Discarded safely. Complications: None. Patient disposition: Discharged from the department in stable condition. US/US paracentesis abd w [id number] IMPRESSION: Uncomplicated ultrasound-guided paracentesis. Removal of 6000 cc
[2025-04-26 13:02] LABS: Cyto Order Verification No Order
[2025-04-26 13:31] LABS: Albumin Peritoneal Fluid 1.0 g/dL
[2025-04-26 13:36] LABS: Mononuclear #, Pertinoneal Fl 0.188 10^3/uL; Mononuclear %, Pertinoneal Fl 91.700 %; Polynuclear # Cells, Perit 0.017 10^3/uL; Polynuclear % Cells,Perit 8.300 %; RBC Pertioneal Fluid 0 10^3/uL; WBC Peritoneal Fluid 205 /uL
[2025-04-26 14:22] LABS: Appearance, Peritoneal Fluid Clear (Clear); Color, Peritoneal Fluid Yellow (Pale Yellow)
== END 2025-04-26 13:11 | disposition home or self-care (01) ==
LOC: GILAB 11:27
PROVIDERS: Radiology Neuroradiology; PCP Family Medicine; Visit Provider Nurse Practitioner Adult Health
PROC: (CPT 49082; principal; 2025-04-26 12:30)
DX: K74.60 Unspecified cirrhosis of liver (principal)
CPT/HCPCS: 49083; 80503; 82042; 84157; 87070; 87075; 87205; 89050; A9270

== ENCOUNTER 2025-05-02 09:55 | Outpatient (CLI) | payer MEDICARE, MEDICAID, OTHER, SELFPAY ==
--- NOTE | 2025-05-02 10:02 | XRR_ITS ---
PROCEDURE INFORMATION: Exam: XR Right Foot Exam date and time: 05/02/2025 10:09 AM Age: 65 years old Clinical indication: Right; Pain in lateral portion of RT foot x few weeks. PT states pain increases w/ activity. ; Additional info: Pain over 5th metatarsal, diabetic TECHNIQUE: Imaging protocol: Radiologic exam of the right foot. Views: 3 or more views. COMPARISON: No relevant prior studies available. FINDINGS: Bones/joints: No fracture, dislocation, or destructive osseous changes. Alignment is preserved. Calcaneal enthesophytes. Additional heterotopic ossification along the plantar aspect of the calcaneus in the region of the plantar fascia, which may be related to prior injury. [id number] degenerative change of the midfoot. Soft tissues: Vascular calcifications in the soft tissues. XR/XR foot RT min 3V* [id number] IMPRESSION: 1. No acute radiographic bony abnormality. If the patient experiences persistent or worsening symptoms, noncontrast MRI could be considered to exclude stress reaction or occult fracture. 3. Calcaneal enthesophytes. Additional heterotopic ossification along the plantar aspect of the calcaneus in the region of the plantar fascia, which could be related to prior injury.
== END 2025-05-02 09:56 | disposition home or self-care (01) ==
PROVIDERS: PCP Family Medicine; Visit Provider Family Medicine
DX: M79.671 Pain in right foot (principal); M77.31 Calcaneal spur, right foot; M72.2 Plantar fascial fibromatosis
CPT/HCPCS: 73630

== ENCOUNTER → 2025-05-10 12:30 | Day surgery (SDC) | payer MEDICARE, MEDICAID, OTHER, SELFPAY ==
[2025-05-10 11:27] VITALS: BP 157/83; PULSE 87; RESP 18; TEMP 36.6; O2SAT 96
[2025-05-10 11:34] VITALS: BMI 32.3
--- NOTE | 2025-05-10 11:35 | US_ITS ---
WS: [email or web address] ULTRASOUND-GUIDED PARACENTESIS CLINICAL INFORMATION: ascites COMPARISON: None. Procedure Informed consent: The risks, benefits, and alternatives of the procedure were discussed with the patient. Verbal and written consent was obtained. Timeout: A timeout was performed to confirm the correct patient, procedure, and site. Preparation: A suitable skin site was identified. The patient was prepped and draped in usual sterile fashion. Lidocaine 1% was used for local anesthesia. Catheter: 4 Italian One-step Yueh catheter. Side: LEFT lower quadrant. Fluid Volume: 6700 ml Color: Clear yellow DISPOSITION: Discarded safely. Complications: None. Patient disposition: Discharged from the department in stable condition. US/US paracentesis abd w [id number] IMPRESSION: Uncomplicated ultrasound-guided paracentesis. Removal of 6700
[2025-05-10 12:44] LABS: Cyto Order Verification Order Verified
[2025-05-10 12:48] LABS: Mononuclear #, Pertinoneal Fl 0.157 10^3/uL; Mononuclear %, Pertinoneal Fl 90.700 %; Polynuclear # Cells, Perit 0.016 10^3/uL; Polynuclear % Cells,Perit 9.300 %; RBC Pertioneal Fluid 0 10^3/uL; WBC Peritoneal Fluid 173 /uL
[2025-05-10] MEDS: albumin 50 G/200 ML BAG 60 G IV (13:18)
[2025-05-10 13:24] LABS: Albumin Peritoneal Fluid 1.0 g/dL; Appearance, Peritoneal Fluid Cloudy (Clear); Color, Peritoneal Fluid Yellow (Pale Yellow); Pathology Referral Yes
== END ==
LOC: GILAB 05-13 09:25
PROVIDERS: Radiology Neuroradiology; PCP Family Medicine; Visit Provider Nurse Practitioner Adult Health
PROC: (CPT 49082; principal; 2025-05-10 12:30)
DX: R18.8 Other ascites (principal)
CPT/HCPCS: 49083; 80503; 82042; 84157; 87075; 88112; 88305; 89050; 96365; P9046

== ENCOUNTER 2025-05-19 14:15 | Outpatient (CLI) | payer MEDICARE, MEDICAID, SELFPAY ==
--- NOTE | 2025-05-19 14:21 | USCV_ITS ---
Marcos Deluca Age: 65 Gender: M : 1960 Exam Date: 05/19/2025 14:34 Ordering Phys: Jessie Kessler NP Technologist: Exam Location: [facility] – [place], [place] Indication: cp sob BP: 125 / 70 HR: 81 Rhythm: Sinus Technical Quality: Adequate MEASUREMENTS (Male / Female) Normal Values 2D ECHO LV Diastolic Diameter PLAX 4.1 cm 4.2 - 5.9 / 3.9 - 5.3 cm IVS Diastolic Thickness 1.5 cm 0.6 - 1.0 / 0.6 - 0.9 cm IVS Systolic Thickness 1.9 cm LVPW Diastolic Thickness 1.2 cm 0.6 - 1.0 / 0.6 - 0.9 cm LVPW Systolic Thickness 1.3 cm LVOT Diameter 2.0 cm LV Ejection Fraction 2D Teich 68.7 % LV Ejection Fraction MOD 4C 62.4 % LV Ejection Fraction MOD 2C 65.1 % LV Ejection Fraction 2C AL 65.2 % LA Diameter 4.3 cm RA Systolic Volume 4C AL 43.5 ml RA Systolic Volume 4C MOD 41.4 ml Aorta at Sinotubular Diameter 3.1 cm M-MODE LA Ao Ratio MM 1.0 AV Cusp Separation MM 1.9 cm DOPPLER AV Peak Velocity 281.0 cm/s LVOT Peak Velocity 91.0 cm/s AV Area Cont Eq vti 1.2 cm squared AV Area Cont Eq pk 1.1 cm squared MV Peak Velocity 156.0 cm/s MV Area PHT 3.5 cm squared Mitral E to A Ratio 0.8 TR Peak Velocity 253.0 cm/s TR Peak Gradient 25.6 mmHg TV Peak E Velocity 99.0 cm/s PV Peak Velocity 111.0 cm/s FINDINGS Left Ventricle Normal left ventricular size, systolic function and wall thickness, with no regional wall motion abnormalities. Left ventricular ejection fraction is estimated at 60 %. Grade I/IV diastolic dysfunction (abnormal relaxation filling pattern), normal to mildly elevated filling pressures. Right Ventricle Normal right ventricular size and systolic function. Right Atrium Normal right atrial size. Left Atrium Moderately increased left atrial size. IA Septum Normal appearance of the interatrial septum. Mitral Valve Mildly thickened mitral valve. No mitral valve stenosis. Moderate mitral valve regurgitation. Aortic Valve Moderate aortic valve calcification. Moderate aortic valve stenosis, mean gradient 14.2 mmHg, ARCELIA 1.2 cm squared. Trace aortic valve regurgitation. Tricuspid Valve Normal tricuspid valve structure. No tricuspid valve stenosis or regurgitation. Normal pulmonary pressure. Pulmonic Valve Normal pulmonic valve structure. No pulmonic valve stenosis or regurgitation. Pericardium No pericardial effusion. Aorta Normal diameter of the aortic root and ascending thoracic aorta. IVC Normal IVC diameter. CONCLUSIONS Normal left ventricular size, systolic function and wall thickness, with no regional wall motion abnormalities. Left ventricular ejection fraction is estimated at 60 %. Grade I/IV diastolic dysfunction (abnormal relaxation filling pattern), normal to mildly elevated filling pressures. Moderately increased left atrial size. Moderate aortic valve calcification. Moderate aortic valve stenosis, mean gradient 14.2 mmHg, ARCELIA 1.2 cm squared. Trace aortic valve regurgitation. There is no pericardial effusion. Right atrial pressure is around 5 mm of mercury. Marielos Lu MD (Electronically Signed) Final Date: 28 May 2025 23:59 S
== END 2025-05-19 14:16 | disposition home or self-care (01) ==
LOC: RAD 14:17
PROVIDERS: PCP Family Medicine; Visit Provider Nurse Practitioner Adult Health
DX: K74.60 Unspecified cirrhosis of liver (principal); R18.8 Other ascites; R93.1 Abnormal findings on diagnostic imaging of heart and coronary circulation; I51.7 Cardiomegaly; I34.0 Nonrheumatic mitral (valve) insufficiency; I35.8 Other nonrheumatic aortic valve disorders; I35.0 Nonrheumatic aortic (valve) stenosis
CPT/HCPCS: 93306

== ENCOUNTER 2025-05-24 11:18 | Day surgery (SDC) | payer MEDICARE, MEDICAID, SELFPAY ==
[2025-05-24 11:29] VITALS: BP 143/78; PULSE 80; RESP 16; TEMP 36.3; O2SAT 98
[2025-05-24 11:31] VITALS: BMI 32.3
--- NOTE | 2025-05-24 11:33 | US_ITS ---
WS: [id number] ULTRASOUND-GUIDED PARACENTESIS CLINICAL INFORMATION: Cirrhosis COMPARISON: None. Procedure Informed consent: The risks, benefits, and alternatives of the procedure were discussed with the patient. Verbal and written consent was obtained. Timeout: A timeout was performed to confirm the correct patient, procedure, and site. Preparation: A suitable skin site was identified. The patient was prepped and draped in usual sterile fashion. Lidocaine 1% was used for local anesthesia. Catheter: 4 [place] One-step Yueh catheter. Side: RIGHT lower quadrant. Fluid Volume: 6300 ml Color: Clear yellow DISPOSITION: Discarded safely. Complications: None. Patient disposition: Discharged from the department in stable condition. US/US paracentesis abd w [id number] IMPRESSION: Uncomplicated ultrasound-guided paracentesis. Removal of 6300 cc
[2025-05-24 12:45] LABS: Appearance, Peritoneal Fluid Hazy (Clear); Color, Peritoneal Fluid Yellow (Pale Yellow); Cyto Order Verification Order Verified
[2025-05-24 12:55] LABS: Mononuclear #, Pertinoneal Fl 0.162 10^3/uL; Mononuclear %, Pertinoneal Fl 90.000 %; Polynuclear # Cells, Perit 0.018 10^3/uL; Polynuclear % Cells,Perit 10.000 %; RBC Pertioneal Fluid 0 10^3/uL; WBC Peritoneal Fluid 180 /uL
[2025-05-24 13:40] LABS: Albumin Peritoneal Fluid 1.1 g/dL
== END 2025-05-24 13:26 | disposition home or self-care (01) ==
LOC: GILAB 11:19
PROVIDERS: Radiology Neuroradiology; PCP Family Medicine; Visit Provider Nurse Practitioner Adult Health
PROC: (CPT 49082; principal; 2025-05-24 12:30)
DX: K74.60 Unspecified cirrhosis of liver (principal)
CPT/HCPCS: 49083; 80503; 82042; 84157; 87070; 87075; 87205; 88112; 88305; 89050